=== PATIENT | male | born 1995 | race Caucasian/White ===

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

== ENCOUNTER 2017-11-20 08:34 | Emergency (ER) | payer BC, OTHER ==
[2017-11-20 08:51] VITALS: BP 106/71; PULSE 79; RESP 16; TEMP 98
--- NOTE | 2017-11-20 09:16 | ED ---
Lower Extremity Injury HPI - General Chief Complaint: Extremity Injury, Lower Stated Complaint: Ankle injury Time Seen by Provider: 11/20/17 09:04 Source: patient, RN notes reviewed Mode of arrival: wheelchair Limitations: no limitations - History of Present Illness Initial Comments: This a 22-year-old male presents emergency Department chief complaint of left ankle and foot injury. Patient states his messing around his friends landed on his left ankle awkwardly and felt a pop. Patient states her swelling noted. He 's had no prior fracture or sprains. Patient states that it's he has been applying ice no recent Tylenol Motrin. Patient offers no other complaints. - Related Data Previous Rx's Medication Instructions Recorded Ibuprofen [Motrin] 600 mg PO Q8HR PRN #30 tab 11/20/17 Allergies Allergy/AdvReac Type Severity Reaction Status Date / Time sulfamethoxazole Allergy Rash/Hives Verified 11/20/17 09:02 [From Marra] trimethoprim [From Marra] Allergy Rash/Hives Verified 11/20/17 09:02 Review of Systems ROS Statement: Those systems with pertinent positive or pertinent negative responses have been documented in the HPI. ROS Other: All systems not noted in ROS Statement are negative. Past Medical History Additional Past Medical History / Comment(s): kidney stones History of Any Multi-Drug Resistant Organisms: None Reported Past Surgical History: No Surgical Hx Reported Past Psychological History: No Psychological Hx Reported Smoking Status: Never smoker Past Alcohol Use History: None Reported Past Drug Use History: None Reported General Exam Limitations: no limitations General appearance: alert, in no apparent distress Head exam: Present: atraumatic, normocephalic, normal inspection Respiratory exam: Present: normal lung sounds bilaterally. Absent: respiratory distress, wheezes, rales, rhonchi, stridor Cardiovascular Exam: Present: regular rate, normal rhythm, normal heart sounds. Absent: systolic murmur, diastolic murmur, rubs, gallop, clicks Extremities exam: Present: other (There is mild swelling noted to the left lateral malleolus region, left lateral foot with moderate tenderness neurovascular intact.) Skin exam: Present: warm, dry, intact, normal color. Absent: rash Course Vital Signs 11/20/17 08:49 Temperature 98 F Pulse Rate 79 Respiratory 16 Rate Blood Pressure 106/71 O2 Sat by Pulse 99 Oximetry Medical Decision Making - Medical Decision Making 22-year-old male presents emergency Department chief complaint of left ankle foot injury. X-rays reviewed there is no acute fracture. Patient has a left ankle sprain. Patient will be Gilles wrapped. He is advised to continue to elevate rest ice and take ibuprofen as directed. Return parameters were discussed. Disposition Clinical Impression: Left ankle sprain Disposition: HOME SELF-CARE Condition: Stable Instructions: Ankle Sprain (ED) Additional Instructions: Please return to the Emergency Department if symptoms worsen or any other concerns. Prescriptions: Ibuprofen [Motrin] 600 mg PO Q8HR PRN #30 tab PRN Reason: Pain Is patient prescribed a controlled substance at d/c from ED?: No Referrals: Koby Roberson MD [Primary Care Provider] - 1-2 days Enrico Contreras DO [Doctor of Osteopathic Medicine] - 1-2 days Time of Disposition: 09:45
--- NOTE | 2017-11-20 09:42 | XR ---
EXAMINATION TYPE: XR ankle complete LT, XR foot complete LT DATE OF EXAM: 11/20/2017 CLINICAL HISTORY: Injury yesterday with swelling and bruising and pain. TECHNIQUE: Frontal, lateral and oblique images of the left ankle and foot are obtained. COMPARISON: None. FINDINGS: There is no acute fracture/dislocation evident in the left ankle. The ankle mortise appea rs within normal limits. The overlying soft tissue appears unremarkable. There is no acute fracture or dislocation evident in the left foot. The joint spaces in the left marcella t are preserved. Overlying soft tissue is unremarkable. IMPRESSION: There is no acute fracture or dislocation in the left ankle or foot.
== END 2017-11-20 10:15 | disposition home or self-care (01) ==
LOC: EC 08:34
DX: S93.402A Sprain of unspecified ligament of left ankle, initial encounter (principal); Z88.2 Allergy status to sulfonamides; X50.1XXA Overexertion from prolonged static or awkward postures, initial encounter
CPT/HCPCS: 99283

== ENCOUNTER 2018-03-08 11:29 | Emergency (ER) | payer BC ==
[2018-03-08 12:00] VITALS: RESP 18
[2018-03-08] MEDS ORDERED: SODIUM CHLORIDE 0.9% 1,000 ML IV STA (12:12)
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
[2018-03-08 13:08] LABS: Appearance,Urine Clear (Clear); Bilirubin,Urine Negative (Negative); Blood,Urine Large (Negative); Color,Urine Light Red; Glucose,Urine (UA) Negative (Negative); Ketones,Urine 1+ (Negative); Leukocyte Esterase,Urine Trace (Negative); Mucus,Urine Many /hpf; Nitrite,Urine Negative (Negative); PH, Urine 7.5 (5.0-8.0); Protein,Urine 1+ (Negative); RBC,Urine >182 /hpf (0-5); Squamous Epithelial Cell,Urine 2 /hpf (0-4); Urobilinogen,Urine <2.0 mg/dL (<2.0); WBC,Urine 50 /hpf (0-5)
[2018-03-08 13:10] LABS: Basophils # (A) 0.1 k/uL (0-0.2); Basophils % (A) 1 %; Eosinophils # (A) 0.1 k/uL (0-0.7); Eosinophils % (A) 2 %; HCT 49.6 % (39.0-53.0); Lymphocytes # (A) 1.7 k/uL (1.0-4.8); Lymphocytes % (A) 22 %; MCH 30.7 pg (25.0-35.0); MCHC 34.3 g/dL (31.0-37.0); MCV 89.7 fL (80.0-100.0); Mean Platelet Volume 8.6; Monocytes # (A) 0.8 k/uL (0-1.0); Monocytes % (A) 11 %; Neutrophils # (A) 4.9 k/uL (1.3-7.7); Neutrophils % (A) 63 %; Platelet Count 244 k/uL (150-450); RBC 5.53 m/uL (4.30-5.90); RDW 12.5 % (11.5-15.5); WBC 7.8 k/uL (3.8-10.6)
[2018-03-08 13:19] LABS: ALT 25 U/L (21-72); AST 44 U/L (17-59); Albumin 4.3 g/dL (3.5-5.0); Alkaline Phosphatase 91 U/L (38-126); Anion Gap 11 mmol/L; Blood Urea Nitrogen 14 mg/dL (9-20); Calcium 9.3 mg/dL (8.4-10.2); Carbon Dioxide 25 mmol/L (22-30); Chloride 104 mmol/L (98-107); Glucose 85 mg/dL (74-99); Sodium 140 mmol/L (137-145); Total Bilirubin 2.9 mg/dL (0.2-1.3); Total Protein 8.1 g/dL (6.3-8.2)
[2018-03-08 13:26] LABS: Potassium 5.1 mmol/L (3.5-5.1)
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
[2018-03-08 15:04] VITALS: BP 126/62; PULSE 62; TEMP 97.9
== END 2018-03-08 15:16 | disposition home or self-care (01) ==
LOC: EC 11:29
DX: R31.9 Hematuria, unspecified (principal); R52 Pain, unspecified; Z88.2 Allergy status to sulfonamides; V49.49XA Driver injured in collision with other motor vehicles in traffic accident, initial encounter; Y92.219 Unspecified school as the place of occurrence of the external cause
CPT/HCPCS: 36415; 80053; 85025; 81001; 87086; 74177; 99284; 96360; Q9967

== ENCOUNTER → 2019-02-17 | Outpatient (CLI) | payer BC ==
--- NOTE | 2019-02-18 09:37 | XR ---
KUB HISTORY: Left-sided abdominal pain Frontal KUB and [address] dated 02/18/2019 The patient's right-sided kidney stones and left-sided kidney stones are obscured by overlying bowel gas. Patient's proximal left ureteral calculus is not seen with certainty but may be present in the l eft paraspinal location at the level of the disc space L2-3e measuring approximately 2 to 3 mm Lung b ases are clear. No pneumoperitoneum or bowel obstruction. Bone mineralization is normal. Small calcif ication in the right hemipelvis may represent phlebolith rather than distal ureteral calculus. There is retained fecal debris throughout the distribution of the colon. IMPRESSION: Bilateral nephrolithiasis seen on CT is not as well seen on plain film but is thought to be present in the left paraspinal location. Correlate for fecal stasis.
== END | disposition home or self-care (01) ==
LOC: RADXRMAIN 16:34
PROVIDERS: ATTEND Family Medicine
DX: R10.9 Unspecified abdominal pain (principal); R31.9 Hematuria, unspecified; Z87.442 Personal history of urinary calculi
CPT/HCPCS: 74018

== ENCOUNTER 2019-02-18 01:58 | Emergency (ER) | payer BC ==
[2019-02-18 02:11] VITALS: RESP 18
[2019-02-18] MEDS ORDERED: KETOROLAC 30 MG/ML 1 ML VIAL IVP STA (02:55)
[2019-02-18] MEDS ORDERED: ONDANSETRON 4 MG/2 ML VIAL IVP STA (02:55)
[2019-02-18] MEDS ORDERED: SODIUM CHLORIDE 0.9% 1,000 ML IV STA (02:55)
--- NOTE | 2019-02-18 03:39 | ED ---
Abdominal Pain HPI - General Chief Complaint: Abdominal Pain Stated Complaint: Abd pain Time Seen by Provider: 02/18/19 02:55 Source: patient, RN notes reviewed, old records reviewed Mode of arrival: ambulatory Limitations: no limitations - History of Present Illness Initial Comments: This is a 22-year-old male the ER for evaluation. Patient is today for evaluation of flank pain abdominal pain severe. Patient has history of kidney stones believes is recurrent kidney stone. No blood in the urine no dysuria. No fevers. Mild nausea no active vomiting. Patient denies any other complaints. Patient slight pain is left-sided radiating to groin MD Complaint: flank pain (Left-sided) -: days(s) Location: LLQ, suprapubic, L flank Radiation: L flank Migration to: suprapubic Severity: moderate Severity scale (1-10): 7 Quality: stabbing Consistency: constant Improves With: nothing Worsens With: nothing Associated Symptoms: nausea - Related Data Previous Rx's Medication Instructions Recorded Ibuprofen [Motrin] 600 mg PO Q8HR PRN #30 tab 11/20/17 Naproxen [Naprosyn] 500 mg PO Q12HR PRN #30 tab 02/18/19 Ondansetron Odt [Zofran ODT] 4 mg PO Q8HR PRN #30 tab 02/18/19 Allergies Allergy/AdvReac Type Severity Reaction Status Date / Time sulfamethoxazole Allergy Rash/Hives Verified 02/18/19 02:11 [From ] trimethoprim [From ] Allergy Rash/Hives Verified 02/18/19 02:11 Review of Systems ROS Statement: Those systems with pertinent positive or pertinent negative responses have been documented in the HPI. ROS Other: All systems not noted in ROS Statement are negative. Past Medical History Additional Past Medical History / Comment(s): kidney stones History of Any Multi-Drug Resistant Organisms: None Reported Past Surgical History: No Surgical Hx Reported Past Psychological History: No Psychological Hx Reported Smoking Status: Never smoker Past Alcohol Use History: Occasional Past Drug Use History: None Reported General Exam Limitations: no limitations General appearance: alert, in no apparent distress Head exam: Present: atraumatic, normocephalic, normal inspection Eye exam: Present: normal appearance, PERRL, EOMI. Absent: scleral icterus, conjunctival injection, periorbital swelling ENT exam: Present: normal exam, mucous membranes moist Neck exam: Present: normal inspection. Absent: tenderness, meningismus, lymphadenopathy Respiratory exam: Present: normal lung sounds bilaterally. Absent: respiratory distress, wheezes, rales, rhonchi, stridor Cardiovascular Exam: Present: regular rate, normal rhythm, normal heart sounds. Absent: systolic murmur, diastolic murmur, rubs, gallop, clicks GI/Abdominal exam: Present: soft, normal bowel sounds. Absent: distended, tenderness, guarding, rebound, rigid Extremities exam: Present: normal inspection, full ROM, normal capillary refill. Absent: tenderness, pedal edema, joint swelling, calf tenderness Back exam: Present: normal inspection Neurological exam: Present: alert, oriented X3, CN II-XII intact Psychiatric exam: Present: normal affect, normal mood Skin exam: Present: warm, dry, intact, normal color. Absent: rash Course Vital Signs 02/18/19 02/18/19 02/18/19 02:08 03:25 04:35 Temperature 98.1 F 98 F Pulse Rate 69 64 Respiratory 18 18 Rate Blood Pressure 109/74 134/77 125/64 O2 Sat by Pulse 98 99 Oximetry Medical Decision Making - Medical Decision Making 24 male the ER for evaluation history of kidney stones coming of kidney stones. Patient has adequate pain control currently and can be discharged home - Lab Data Result diagrams: 02/18/19 03:34 02/18/19 03:34 Lab Results 02/18/19 02/18/19 02/18/19 Range/Units 03:34 03:34 03:34 WBC 11.0 H (3.8-10.6) k/uL RBC 5.29 (4.30-5.90) m/uL Hgb 16.2 (13.0-17.5) gm/dL Hct 48.1 (39.0-53.0) % MCV 90.8 (80.0-100.0) fL MCH 30.6 (25.0-35.0) pg MCHC 33.6 (31.0-37.0) g/dL RDW 12.6 (11.5-15.5) % Plt Count 256 (150-450) k/uL Neutrophils % 74 % Lymphocytes % 15 % Monocytes % 7 % Eosinophils % 1 % Basophils % 1 % Neutrophils # 8.1 H (1.3-7.7) k/uL Lymphocytes # 1.7 (1.0-4.8) k/uL Monocytes # 0.8 (0-1.0) k/uL Eosinophils # 0.2 (0-0.7) k/uL Basophils # 0.1 (0-0.2) k/uL Sodium 138 (137-145) mmol/L Potassium 5.4 H (3.5-5.1) mmol/L Chloride 105 (98-107) mmol/L Carbon Dioxide 23 (22-30) mmol/L Anion Gap 10 mmol/L BUN 10 (9-20) mg/dL Creatinine 0.92 (0.66-1.25) mg/dL Est GFR (CKD-EPI)AfAm >90 (>60 ml/min/1.73 sqM) Est GFR (CKD-EPI)NonAf >90 (>60 ml/min/1.73 sqM) Glucose 98 (74-99) mg/dL Calcium 9.0 (8.4-10.2) mg/dL Total Bilirubin 2.0 H (0.2-1.3) mg/dL AST 57 (17-59) U/L ALT 11 L (21-72) U/L Alkaline Phosphatase 96 (38-126) U/L Creatine Kinase 160 (55-170) U/L Total Protein 7.9 (6.3-8.2) g/dL Albumin 4.4 (3.5-5.0) g/dL Amylase 64 (30-110) U/L Lipase 66 (23-300) U/L Urine Color Light Red Urine Appearance Cloudy (Clear) Urine pH 6.0 (5.0-8.0) Ur Specific [place] 1.020 (1.001-1.035) Urine Protein 1+ H (Negative) Urine Glucose (UA) Negative (Negative) Urine Ketones Negative (Negative) Urine Blood Large H (Negative) Urine Nitrite Negative (Negative) Urine Bilirubin Negative (Negative) Urine Urobilinogen 2.0 (<2.0) mg/dL Ur Leukocyte Esterase Small H (Negative) Urine RBC >182 H (0-5) /hpf Urine WBC 8 H (0-5) /hpf Ur Squamous Epith Cells 4 (0-4) /hpf Calcium Oxalate Crystal Occasional H (None) /hpf Urine Bacteria Rare H (None) /hpf Hyaline Casts 6 H (0-2) /lpf Urine Mucus Moderate H (None) /hpf - Radiology Data Radiology results: report reviewed (CT head and pelvis positive for kidney stone), image reviewed Disposition Clinical Impression: Kidney stone, Left ureteral calculus Disposition: HOME SELF-CARE Condition: Good Instructions (If sedation given, give patient instructions): Kidney Stones (ED) Prescriptions: Naproxen [Naprosyn] 500 mg PO Q12HR PRN #30 tab PRN Reason: Pain Ondansetron Odt [Zofran ODT] 4 mg PO Q8HR PRN #30 tab PRN Reason: nausea/vomiting Is patient prescribed a controlled substance at d/c from ED?: No Referrals: Koby Roberson MD [Primary Care Provider] - 1-2 days
[2019-02-18 03:47] LABS: Basophils # (A) 0.1 k/uL (0-0.2); Basophils % (A) 1 %; Eosinophils # (A) 0.2 k/uL (0-0.7); Eosinophils % (A) 1 %; HCT 48.1 % (39.0-53.0); HGB 16.2 gm/dL (13.0-17.5); Lymphocytes # (A) 1.7 k/uL (1.0-4.8); Lymphocytes % (A) 15 %; MCH 30.6 pg (25.0-35.0); MCHC 33.6 g/dL (31.0-37.0); MCV 90.8 fL (80.0-100.0); Mean Platelet Volume 7.9; Monocytes # (A) 0.8 k/uL (0-1.0); Monocytes % (A) 7 %; Neutrophils # (A) 8.1 k/uL (1.3-7.7); Neutrophils % (A) 74 %; Platelet Count 256 k/uL (150-450); RBC 5.29 m/uL (4.30-5.90); RDW 12.6 % (11.5-15.5)
--- NOTE | 2019-02-18 04:02 | CT ---
INDICATION: Abdominal pain TECHNIQUE: CT acquisition is performed through the abdomen and pelvis. Sagittal and coronal reformatted images are provided. No IV contrast is administered. DOSE INFORMATION: DLP 1225.1 mGy-cm. This CT exam was performed using one or more of the following dose reduction techniques: automated exposure control, adjustment of the mA and/or kV according to patient size, and/or use of iterative reconstruction technique. COMPARISON: CT abdomen and pelvis 03/08/18 FINDINGS: The lung bases are clear. The unenhanced appearance of the liver, gallbladder, spleen, pancreas, and adrenal glands is unremarkable. There are approximately 6 nonobstructing right kidney stones, measuring up to 5 mm in the upper pole. There is no hydronephrosis. There is an obstructing 3 mm proximal left ureter stone at the L3 level causing mild upstream hydroureteronephrosis. There are approximately 4 additional nonobstructing stones in left kidney, the largest measuring 5 mm in the lower pole. Aorta and IVC are normal. There is no adenopathy. The appendix is normal. There are no obstructive or inflammatory changes of the bowel. Urinary bladder and prostate are unremarkable. There are no acute osseous findings. IMPRESSION: 1. Obstructing 3 mm proximal left ureter stone causing mild upstream hydroureteronephrosis. 2. Additional bilateral nonobstructing kidney stones.
[2019-02-18 04:04] LABS: ALT 11 U/L (21-72); AST 57 U/L (17-59); African American GFR (CKD) >90 (>60 ml/min/1.73 sqM); Albumin 4.4 g/dL (3.5-5.0); Alkaline Phosphatase 96 U/L (38-126); Amylase 64 U/L (30-110); Anion Gap 10 mmol/L; Blood Urea Nitrogen 10 mg/dL (9-20); Carbon Dioxide 23 mmol/L (22-30); Chloride 105 mmol/L (98-107); Creatine Kinase 160 U/L (55-170); Glucose 98 mg/dL (74-99); Potassium 5.4 mmol/L (3.5-5.1); Sodium 138 mmol/L (137-145); Total Protein 7.9 g/dL (6.3-8.2)
[2019-02-18 04:12] LABS: Appearance,Urine Cloudy (Clear); Bacteria,Urine Rare /hpf; Bilirubin,Urine Negative (Negative); Blood,Urine Large (Negative); Calcium Oxalate Crystals,Urine Occasional /hpf; Color,Urine Light Red; Glucose,Urine (UA) Negative (Negative); Hyaline Casts,Urine 6 /lpf (0-2); Ketones,Urine Negative (Negative); Leukocyte Esterase,Urine Small (Negative); Mucus,Urine Moderate /hpf; Nitrite,Urine Negative (Negative); Protein,Urine 1+ (Negative); RBC,Urine >182 /hpf (0-5); Squamous Epithelial Cell,Urine 4 /hpf (0-4); WBC,Urine 8 /hpf (0-5)
[2019-02-18] MEDS ORDERED: MORPHINE SULFATE 4 MG/ML SYRINGE IVP STA (04:16)
[2019-02-18] MEDS ORDERED: ACET/COD 300 MG/30 MG STARTER PACK 6 TAB BTL PO STA (04:16)
[2019-02-18 04:36] VITALS: BP 125/64; PULSE 64; TEMP 98
== END 2019-02-18 04:50 | disposition home or self-care (01) ==
LOC: EC 01:58
DX: N13.2 Hydronephrosis with renal and ureteral calculous obstruction (principal); Z88.1 Allergy status to other antibiotic agents; Z88.2 Allergy status to sulfonamides
CPT/HCPCS: 36415; 80053; 82150; 82550; 83690; 85025; 81001; 87086; 74176; 99284; 96374; 96375; 96361; J2405; J1885

== ENCOUNTER → 2020-04-27 | Outpatient (CLI) | payer BC ==
[2020-04-27 16:23] LABS: Basophils # (A) 0.1 k/uL (0-0.2); Basophils % (A) 1 %; Eosinophils # (A) 0.1 k/uL (0-0.7); Eosinophils % (A) 1 %; HCT 49.5 % (39.0-53.0); HGB 16.7 gm/dL (13.0-17.5); Lymphocytes # (A) 1.7 k/uL (1.0-4.8); Lymphocytes % (A) 17 %; MCH 30.9 pg (25.0-35.0); MCHC 33.8 g/dL (31.0-37.0); MCV 91.5 fL (80.0-100.0); Mean Platelet Volume 8.3; Monocytes # (A) 0.7 k/uL (0-1.0); Monocytes % (A) 7 %; Neutrophils # (A) 7.6 k/uL (1.3-7.7); Neutrophils % (A) 73 %; Platelet Count 312 k/uL (150-450); RBC 5.42 m/uL (4.30-5.90); RDW 12.7 % (11.5-15.5); WBC 10.4 k/uL (3.8-10.6)
[2020-04-27 16:32] LABS: ALT 23 U/L (4-49); AST 38 U/L (17-59); African American GFR (CKD) >90 (>60 ml/min/1.73 sqM); Albumin 4.7 g/dL (3.5-5.0); Albumin/Globulin Ratio 1.3; Alkaline Phosphatase 95 U/L (38-126); Anion Gap 7 mmol/L; Blood Urea Nitrogen 14 mg/dL (9-20); Calcium 9.8 mg/dL (8.4-10.2); Carbon Dioxide 29 mmol/L (22-30); Chloride 103 mmol/L (98-107); Globulin 3.6 g/dL; Glucose 98 mg/dL (74-99); Non-African American GFR(CKD) >90 (>60 ml/min/1.73 sqM); Potassium 4.3 mmol/L (3.5-5.1); Sodium 139 mmol/L (137-145); Total Bilirubin 3.3 mg/dL (0.2-1.3); Total Protein 8.3 g/dL (6.3-8.2)
[2020-04-27 16:50] LABS: Appearance,Urine Clear (Clear); Bilirubin,Urine Negative (Negative); Blood,Urine Small (Negative); Color,Urine Yellow; Glucose,Urine (UA) Negative (Negative); Ketones,Urine Negative (Negative); Leukocyte Esterase,Urine Small (Negative); Mucus,Urine Rare /hpf; Nitrite,Urine Negative (Negative); PH, Urine 6.5 (5.0-8.0); Protein,Urine Negative (Negative); RBC,Urine 8 /hpf (0-5); Urobilinogen,Urine <2.0 mg/dL (<2.0); WBC,Urine 3 /hpf (0-5)
== END | disposition home or self-care (01) ==
LOC: LABWHC1 16:04
PROVIDERS: ATTEND Family Medicine
DX: R53.82 Chronic fatigue, unspecified (principal); R35.0 Frequency of micturition
CPT/HCPCS: 36415; 80053; 81001; 83735; 84443; 85025

== ENCOUNTER 2020-06-12 21:07 | Emergency (ER) | payer BC ==
--- NOTE | 2020-06-12 21:27 | ED ---
General Adult HPI - General Chief complaint: Fever Stated complaint: Fever Time Seen by Provider: 06/12/20 21:24 Source: patient Mode of arrival: ambulatory Limitations: no limitations - History of Present Illness Initial comments: Patient presents the ED complaining of having a fever, cough, congestion and "sinus pressure" for the past 5 days or so. Patient states that he has been taking Tylenol for his fever, and he states that he last took a dose over 9 hours ago today. Patient also admits to feeling somewhat nauseated. Patient denies known sick contact or known Covid-19 exposure. Patient denies headache, focal neuro deficit, sore throat, neck pain or stiffness, chest pain, dyspnea, hemoptysis, palpitations, dizziness, abdominal pain, vomiting or diarrhea, dysuria or urinary symptoms, rash, leg or calf swelling or pain, or any other symptoms or complaints. - Related Data Previous Rx's Medication Instructions Recorded Ibuprofen [Motrin] 600 mg PO Q8HR PRN #30 tab 11/20/17 Naproxen [Naprosyn] 500 mg PO Q12HR PRN #30 tab 02/18/19 Ondansetron Odt [Zofran ODT] 4 mg PO Q8HR PRN #30 tab 02/18/19 Allergies Allergy/AdvReac Type Severity Reaction Status Date / Time sulfamethoxazole Allergy Rash/Hives Verified 06/12/20 21:22 [From ] trimethoprim [From [place]] Allergy Rash/Hives Verified 06/12/20 21:22 Review of Systems ROS Statement: Those systems with pertinent positive or pertinent negative responses have been documented in the HPI. ROS Other: All systems not noted in ROS Statement are negative. Past Medical History Additional Past Medical History / Comment(s): kidney stones History of Any Multi-Drug Resistant Organisms: None Reported Past Surgical History: No Surgical Hx Reported Additional Past Surgical History / Comment(s): kidney Past Psychological History: No Psychological Hx Reported Smoking Status: Never smoker Past Alcohol Use History: Occasional Past Drug Use History: Marijuana General Exam Limitations: no limitations General appearance: alert, in no apparent distress Head exam: Present: atraumatic, normocephalic Eye exam: Present: normal appearance, EOMI ENT exam: Present: normal oropharynx, mucous membranes moist Neck exam: Present: other (Trachea is in midline; no nuchal rigidity or meningeal signs are present on examination). Absent: tenderness, meningismus Respiratory exam: Present: normal lung sounds bilaterally. Absent: respiratory distress, wheezes, rales, rhonchi, stridor Cardiovascular Exam: Present: normal rhythm, tachycardia, normal heart sounds, other (Normal radial pulses bilaterally) GI/Abdominal exam: Present: soft. Absent: distended, tenderness, guarding Extremities exam: Absent: tenderness, pedal edema, calf tenderness Neurological exam: Present: alert, oriented X3. Absent: motor sensory deficit Psychiatric exam: Present: normal affect, normal mood Skin exam: Present: warm, dry, intact, normal color Course Vital Signs 06/12/20 06/12/20 21:18 22:54 Temperature 103.1 F H 99.9 F H Pulse Rate 119 H 102 H Respiratory 24 16 Rate Blood Pressure 87/47 111/58 O2 Sat by Pulse 99 100 Oximetry - Reevaluation(s) Reevaluation #1: 06/12/20 22:59 Patient's fever, heart rate and blood pressure have all now improved. Patient continues to be breathing comfortably with clear breath sounds bilaterally and a normal room air oxygen saturation. Patient denies development of any new symptoms while in the ED, and he continues to deny having any chest pain or dyspnea. Patient's chest x-ray is unremarkable. Patient's influenza and mono tests are negative. I suspect that the patient may have Covid-19. Patient's Covid19 test is currently still pending. Patient is aware of his test results, and he feels comfortable going home at this time. Patient was counseled about fever control, upper respiratory infections and Covid19 infections. Patient was clearly explained return and follow-up instructions. Patient was instructed to have a low threshold for return to the ED, particularly if he develops shortness of breath or chest pain. Patient was counseled about isolation precautions and preventing spread. He feels comfortable with this plan. Medical Decision Making - Lab Data Result diagrams: 06/12/20 21:35 06/12/20 21:35 Lab Results 06/12/20 06/12/20 06/12/20 Range/Units 21:35 21:35 21:35 WBC 8.1 (3.8-10.6) k/uL RBC 4.94 (4.30-5.90) m/uL Hgb 16.0 (13.0-17.5) gm/dL Hct 44.8 (39.0-53.0) % MCV 90.6 (80.0-100.0) fL MCH 32.3 (25.0-35.0) pg MCHC 35.6 (31.0-37.0) g/dL RDW 12.3 (11.5-15.5) % Plt Count 159 (150-450) k/uL MPV 8.8 Neutrophils % (Manual) 32 % Lymphocytes % (Manual) 36 % Monocytes % (Manual) 32 % Neutrophils # (Manual) 2.59 (1.3-7.7) k/uL Lymphocytes # (Manual) 2.92 (1.0-4.8) k/uL Monocytes # (Manual) 2.59 H (0-1.0) k/uL Nucleated RBCs 0 (0-0) /100 WBC Manual Slide Review Performed Reactive Lymphocytes Present Sodium 134 L (137-145) mmol/L Potassium 4.4 (3.5-5.1) mmol/L Chloride 102 (98-107) mmol/L Carbon Dioxide 24 (22-30) mmol/L Anion Gap 8 mmol/L BUN 13 (9-20) mg/dL Creatinine 1.07 (0.66-1.25) mg/dL Est GFR (CKD-EPI)AfAm >90 (>60 ml/min/1.73 sqM) Est GFR (CKD-EPI)NonAf >90 (>60 ml/min/1.73 sqM) Glucose 102 H (74-99) mg/dL Calcium 9.0 (8.4-10.2) mg/dL Total Bilirubin 2.6 H (0.2-1.3) mg/dL AST 267 H (17-59) U/L ALT 292 H (4-49) U/L Alkaline Phosphatase 143 H (38-126) U/L Total Protein 7.6 (6.3-8.2) g/dL Albumin 3.9 (3.5-5.0) g/dL Heterophile Antibody (Negative) Influenza Type A RNA Not Detected (Not Detectd) Influenza Type B (PCR) Not Detected (Not Detectd) 06/12/20 Range/Units 21:35 WBC (3.8-10.6) k/uL RBC (4.30-5.90) m/uL Hgb (13.0-17.5) gm/dL Hct (39.0-53.0) % MCV (80.0-100.0) fL MCH (25.0-35.0) pg MCHC (31.0-37.0) g/dL RDW (11.5-15.5) % Plt Count (150-450) k/uL MPV Neutrophils % (Manual) % Lymphocytes % (Manual) % Monocytes % (Manual) % Neutrophils # (Manual) (1.3-7.7) k/uL Lymphocytes # (Manual) (1.0-4.8) k/uL Monocytes # (Manual) (0-1.0) k/uL Nucleated RBCs (0-0) /100 WBC Manual Slide Review Reactive Lymphocytes Sodium (137-145) mmol/L Potassium (3.5-5.1) mmol/L Chloride (98-107) mmol/L Carbon Dioxide (22-30) mmol/L Anion Gap mmol/L BUN (9-20) mg/dL Creatinine (0.66-1.25) mg/dL Est GFR (CKD-EPI)AfAm (>60 ml/min/1.73 sqM) Est GFR (CKD-EPI)NonAf (>60 ml/min/1.73 sqM) Glucose (74-99) mg/dL Calcium (8.4-10.2) mg/dL Total Bilirubin (0.2-1.3) mg/dL AST (17-59) U/L ALT (4-49) U/L Alkaline Phosphatase (38-126) U/L Total Protein (6.3-8.2) g/dL Albumin (3.5-5.0) g/dL Heterophile Antibody Negative (Negative) Influenza Type A RNA (Not Detectd) Influenza Type B (PCR) (Not Detectd) - Radiology Data Radiology results: image reviewed (Chest x-ray is negative) Disposition Clinical Impression: Upper respiratory infection, Acute febrile illness Disposition: HOME SELF-CARE Condition: Stable Instructions (If sedation given, give patient instructions): Fever in Adults (ED), Upper Respiratory Infection (ED) Additional Instructions: Return to the ER immediately should you develop shortness of breath/trouble breathing, chest pain, persistent vomiting, feeling dizzy or faint, or new or worsening symptoms. Follow up closely with your primary care provider. Is patient prescribed a controlled substance at d/c from ED?: No Referrals: Koby Roberson MD [Primary Care Provider] - 1-2 days Time of Disposition: 23:03
[2020-06-12] MEDS ORDERED: ACETAMINOPHEN TAB 500 MG TAB PO STA (21:34)
[2020-06-12] MEDS ORDERED: SODIUM CHLORIDE 0.9% 1,000 ML IV ONE (21:34)
[2020-06-12] MEDS ORDERED: IBUPROFEN 600 MG TAB PO STA (21:34)
[2020-06-12 21:55] LABS: HCT 44.8 % (39.0-53.0); MCH 32.3 pg (25.0-35.0); MCHC 35.6 g/dL (31.0-37.0); MCV 90.6 fL (80.0-100.0); Mean Platelet Volume 8.8; Platelet Count 159 k/uL (150-450); RBC 4.94 m/uL (4.30-5.90); RDW 12.3 % (11.5-15.5); WBC 8.1 k/uL (3.8-10.6)
[2020-06-12 22:05] LABS: ALT 292 U/L (4-49); AST 267 U/L (17-59); African American GFR (CKD) >90 (>60 ml/min/1.73 sqM); Albumin 3.9 g/dL (3.5-5.0); Alkaline Phosphatase 143 U/L (38-126); Anion Gap 8 mmol/L; Blood Urea Nitrogen 13 mg/dL (9-20); Carbon Dioxide 24 mmol/L (22-30); Chloride 102 mmol/L (98-107); Glucose 102 mg/dL (74-99); Non-African American GFR(CKD) >90 (>60 ml/min/1.73 sqM); Potassium 4.4 mmol/L (3.5-5.1); Sodium 134 mmol/L (137-145); Total Bilirubin 2.6 mg/dL (0.2-1.3); Total Protein 7.6 g/dL (6.3-8.2)
--- NOTE | 2020-06-12 22:06 | XR ---
EXAMINATION TYPE: XR chest 1V portable DATE OF EXAM: 06/12/2020 COMPARISON: NONE HISTORY: Fever and cough. TECHNIQUE: Single frontal view of the chest is obtained. FINDINGS: There is no focal air space opacity, pleural effusion, or pneumothorax seen. The cardiac silhouette size is within normal limits. The osseous structures are intact. IMPRESSION: No acute process.
[2020-06-12 22:46] LABS: Lymphocytes # (M) 2.92 k/uL (1.0-4.8); Monocytes # (M) 2.59 k/uL (0-1.0); Neutrophils # (M) 2.59 k/uL (1.3-7.7); Neutrophils % (M) 32 %; Nucleated Red Blood Cells 0 /100 WBC (0-0); Reactive Lymphocytes Present; Total Cells Counted 100
[2020-06-12 22:55] VITALS: BP 111/58; PULSE 102; RESP 16; TEMP 99.9
== END 2020-06-12 22:59 | disposition home or self-care (01) ==
LOC: EC 21:07
DX: J06.9 Acute upper respiratory infection, unspecified (principal); Z20.828 Contact with and (suspected) exposure to other viral communicable diseases; Z88.2 Allergy status to sulfonamides; Z88.1 Allergy status to other antibiotic agents
CPT/HCPCS: 36415; 80053; 85025; 86308; 87502; 71045; 99283; 96360; U0003

== ENCOUNTER 2021-09-11 09:40 | Emergency (ER) | payer BC ==
[2021-09-11] MEDS ORDERED: KETOROLAC 15 MG/ML 1 ML VIAL IVP STA (09:54)
[2021-09-11] MEDS ORDERED: SODIUM CHLORIDE 0.9% 2,000 ML IV ONE (09:54)
[2021-09-11] MEDS ORDERED: ONDANSETRON 4 MG/2 ML VIAL IVP STA (09:54)
[2021-09-11] MEDS ORDERED: HYDROmorphone 0.5 MG/0.5 ML SYRINGE IVP STA (09:54)
--- NOTE | 2021-09-11 10:08 | ED ---
Abdominal Pain HPI - General Chief Complaint: Abdominal Pain Stated Complaint: Kidney stone Time Seen by Provider: 09/11/21 09:45 Source: patient, RN notes reviewed Mode of arrival: ambulatory Limitations: no limitations - History of Present Illness Initial Comments: 26-year-old male presents emergency Department with chief complaint of right flank pain. Patient states awoke him up this one. Patient has a history kidney stones. Patient now has noticeable hematuria. Patient denies any fevers chills he does admit to nausea, nothing take makes the pain feel better or worse. Patient denies any chest pain shortness breath headache dizziness patient's had multiple kidney stones in the past - Related Data Previous Rx's Medication Instructions Recorded Ibuprofen [Motrin] 600 mg PO Q8HR PRN #30 tab 11/20/17 Naproxen [Naprosyn] 500 mg PO Q12HR PRN #30 tab 02/18/19 Ondansetron Odt [Zofran ODT] 4 mg PO Q8HR PRN #30 tab 02/18/19 Ketorolac [Toradol] 10 mg PO Q8HR #15 tab 09/11/21 Ondansetron Odt [Zofran Odt] 4 mg PO Q8HR PRN #10 tab 09/11/21 Allergies Allergy/AdvReac Type Severity Reaction Status Date / Time sulfamethoxazole Allergy Rash/Hives Verified 09/11/21 09:43 [From Septra] trimethoprim [From Septra] Allergy Rash/Hives Verified 09/11/21 09:43 Review of Systems ROS Statement: Those systems with pertinent positive or pertinent negative responses have been documented in the HPI. ROS Other: All systems not noted in ROS Statement are negative. Past Medical History Additional Past Medical History / Comment(s): kidney stones History of Any Multi-Drug Resistant Organisms: None Reported Past Surgical History: No Surgical Hx Reported Additional Past Surgical History / Comment(s): kidney Past Psychological History: No Psychological Hx Reported Smoking Status: Never smoker Past Alcohol Use History: Occasional Past Drug Use History: Marijuana General Exam Limitations: no limitations General appearance: alert, in no apparent distress Head exam: Present: atraumatic, normocephalic, normal inspection Eye exam: Present: normal appearance, PERRL, EOMI. Absent: scleral icterus, conjunctival injection, periorbital swelling ENT exam: Present: normal exam, normal oropharynx, mucous membranes moist Neck exam: Present: normal inspection, full ROM. Absent: tenderness, meningismus, lymphadenopathy Respiratory exam: Present: normal lung sounds bilaterally. Absent: respiratory distress, wheezes, rales, rhonchi, stridor Cardiovascular Exam: Present: regular rate, normal rhythm, normal heart sounds. Absent: systolic murmur, diastolic murmur, rubs, gallop, clicks GI/Abdominal exam: Present: soft, normal bowel sounds. Absent: distended, tenderness, guarding, rebound, rigid Back exam: Present: CVA tenderness (R). Absent: CVA tenderness (L) Neurological exam: Present: alert, oriented X3 Skin exam: Present: warm, dry, intact, normal color. Absent: rash Course Vital Signs 09/11/21 09:41 Temperature 97.8 F Pulse Rate 75 Respiratory 18 Rate Blood Pressure 133/83 O2 Sat by Pulse 97 Oximetry Medical Decision Making - Medical Decision Making 26-year-old presented for flank pain is asymptomatic time did have gross he maturia and history kidney stones this is clinically consistent. Patient we discharged in stable condition return parameters were discussed. - Lab Data Result diagrams: 09/11/21 10:04 09/11/21 11:25 Lab Results 09/11/21 09/11/21 09/11/21 Range/Units 09:52 10:04 11:25 WBC 7.4 (3.8-10.6) k/uL RBC 5.18 (4.30-5.90) m/uL Hgb 16.5 (13.0-17.5) gm/dL Hct 47.9 (39.0-53.0) % MCV 92.4 (80.0-100.0) fL MCH 31.9 (25.0-35.0) pg MCHC 34.5 (31.0-37.0) g/dL RDW 12.5 (11.5-15.5) % Plt Count 257 (150-450) k/uL MPV 8.1 Neutrophils % 72 % Lymphocytes % 18 % Monocytes % 6 % Eosinophils % 2 % Basophils % 1 % Neutrophils # 5.3 (1.3-7.7) k/uL Lymphocytes # 1.3 (1.0-4.8) k/uL Monocytes # 0.4 (0-1.0) k/uL Eosinophils # 0.2 (0-0.7) k/uL Basophils # 0.1 (0-0.2) k/uL Sodium 138 (137-145) mmol/L Potassium 4.4 (3.5-5.1) mmol/L Chloride 108 H (98-107) mmol/L Carbon Dioxide 24 (22-30) mmol/L Anion Gap 6 mmol/L BUN 14 (9-20) mg/dL Creatinine 0.92 (0.66-1.25) mg/dL Est GFR (CKD-EPI)AfAm >90 (>60 ml/min/1.73 sqM) Est GFR (CKD-EPI)NonAf >90 (>60 ml/min/1.73 sqM) Glucose 111 H (74-99) mg/dL Calcium 8.4 (8.4-10.2) mg/dL Total Bilirubin 1.3 (0.2-1.3) mg/dL AST 25 (17-59) U/L ALT 19 (4-49) U/L Alkaline Phosphatase 84 (38-126) U/L Total Protein 6.9 (6.3-8.2) g/dL Albumin 3.7 (3.5-5.0) g/dL Urine Color Dark Red Urine Appearance Cloudy (Clear) Urine pH 6.5 (5.0-8.0) Ur Specific [place] 1.021 (1.001-1.035) Urine Protein 2+ H (Negative) Urine Glucose (UA) Negative (Negative) Urine Ketones Negative (Negative) Urine Blood Large H (Negative) Urine Nitrite Negative (Negative) Urine Bilirubin Negative (Negative) Urine Urobilinogen <2.0 (<2.0) mg/dL Ur Leukocyte Esterase Small H (Negative) Urine RBC >182 H (0-5) /hpf Urine WBC 52 H (0-5) /hpf Urine Mucus Many H (None) /hpf Disposition Clinical Impression: Kidney stone on right side Disposition: HOME SELF-CARE Condition: Stable Instructions (If sedation given, give patient instructions): Kidney Stones (ED) Additional Instructions: Please return to the Emergency Department if symptoms worsen or any other concerns. Prescriptions: Ketorolac [Toradol] 10 mg PO Q8HR #15 tab Ondansetron Odt [Zofran Odt] 4 mg PO Q8HR PRN #10 tab PRN Reason: Nausea Is patient prescribed a controlled substance at d/c from ED?: No Referrals: Koby Roberson MD [Primary Care Provider] - 1-2 days Time of Disposition: 11:45
[2021-09-11 10:09] LABS: Appearance,Urine Cloudy (Clear); Bilirubin,Urine Negative (Negative); Blood,Urine Large (Negative); Color,Urine Dark Red; Glucose,Urine (UA) Negative (Negative); Ketones,Urine Negative (Negative); Leukocyte Esterase,Urine Small (Negative); Mucus,Urine Many /hpf; Nitrite,Urine Negative (Negative); PH, Urine 6.5 (5.0-8.0); Protein,Urine 2+ (Negative); RBC,Urine >182 /hpf (0-5); Specific Gravity,Urine 1.021 (1.001-1.035); Urobilinogen,Urine <2.0 mg/dL (<2.0); WBC,Urine 52 /hpf (0-5)
[2021-09-11 10:11] LABS: Basophils # (A) 0.1 k/uL (0-0.2); Basophils % (A) 1 %; Eosinophils # (A) 0.2 k/uL (0-0.7); Eosinophils % (A) 2 %; HCT 47.9 % (39.0-53.0); HGB 16.5 gm/dL (13.0-17.5); Lymphocytes # (A) 1.3 k/uL (1.0-4.8); Lymphocytes % (A) 18 %; MCH 31.9 pg (25.0-35.0); MCHC 34.5 g/dL (31.0-37.0); MCV 92.4 fL (80.0-100.0); Mean Platelet Volume 8.1; Monocytes # (A) 0.4 k/uL (0-1.0); Monocytes % (A) 6 %; Neutrophils # (A) 5.3 k/uL (1.3-7.7); Neutrophils % (A) 72 %; Platelet Count 257 k/uL (150-450); RBC 5.18 m/uL (4.30-5.90); RDW 12.5 % (11.5-15.5); WBC 7.4 k/uL (3.8-10.6)
--- NOTE | 2021-09-11 10:51 | XR ---
EXAMINATION TYPE: XR KUB DATE OF EXAM: 09/11/2021 Comparison: 02/17/2019 Clinical History: 26-year-old male right flank pain, hx stones Findings: A couple densities in the right mid abdomen measuring 6 mm and 5 mm. Levoconvex curvature centered al [place] the upper lumbar spine probably positional. Lung bases are clear. No dilated small bowel with air-fluid levels. Mild to moderate overall stool burden, more moderate in the right side of the abdomen. Air and stool extends distally to the rectum. No evidence for free intraperitoneal air. Impression: 1. A couple right renal calculi measuring 6 mm and 5 mm. 2. No evidence for free air or bowel obstruction. Mild to moderate stool burden.
[2021-09-11 11:37] LABS: ALT 19 U/L (4-49); AST 25 U/L (17-59); African American GFR (CKD) >90 (>60 ml/min/1.73 sqM); Albumin 3.7 g/dL (3.5-5.0); Alkaline Phosphatase 84 U/L (38-126); Anion Gap 6 mmol/L; Blood Urea Nitrogen 14 mg/dL (9-20); Calcium 8.4 mg/dL (8.4-10.2); Carbon Dioxide 24 mmol/L (22-30); Chloride 108 mmol/L (98-107); Glucose 111 mg/dL (74-99); Non-African American GFR(CKD) >90 (>60 ml/min/1.73 sqM); Potassium 4.4 mmol/L (3.5-5.1); Sodium 138 mmol/L (137-145); Total Bilirubin 1.3 mg/dL (0.2-1.3); Total Protein 6.9 g/dL (6.3-8.2)
[2021-09-11] MEDS ORDERED: ACET/COD 300 MG/30 MG STARTER PACK 6 TAB BTL PO STA (11:46)
[2021-09-11 12:25] VITALS: BP 108/60; PULSE 78; RESP 14; TEMP 97.7
== END 2021-09-11 12:25 | disposition home or self-care (01) ==
LOC: EC 09:40
DX: N20.0 Calculus of kidney (principal); Z88.2 Allergy status to sulfonamides
CPT/HCPCS: 36415; 80053; 85025; 81001; 87086; 74018; 99284; 96374; 96375; J2405; J1885; J1170

== ENCOUNTER 2023-08-27 11:00 | Inpatient (IN) | payer BC ==
[2023-08-27] MEDS: diphenhydrAMINE 50 MG/ML 1 ML VIAL IVP STA (12:02)
[2023-08-27] MEDS: HYDROmorphone 0.5 MG/0.5 ML SYRINGE IVP STA (12:02)
[2023-08-27] MEDS: SODIUM CHLORIDE 0.9% 2,000 ML IV STA (12:03)
[2023-08-27] MEDS: KETOROLAC 15 MG/ML 1 ML VIAL IVP STA (12:03)
[2023-08-27] MEDS: METOCLOPRAMIDE 5 MG/ML 2 ML VIAL IVP STA (12:03)
[2023-08-27 12:04] LABS: Basophils # (A) 0.1 k/uL (0-0.2); Basophils % (A) 1 %; Eosinophils # (A) 0.1 k/uL (0-0.7); Eosinophils % (A) 1 %; HCT 49.7 % (39.0-53.0); HGB 17.5 gm/dL (13.0-17.5); Lymphocytes # (A) 1.9 k/uL (1.0-4.8); Lymphocytes % (A) 20 %; MCH 31.6 pg (25.0-35.0); MCHC 35.2 g/dL (31.0-37.0); MCV 89.7 fL (80.0-100.0); Mean Platelet Volume 8.2; Monocytes # (A) 0.5 k/uL (0-1.0); Monocytes % (A) 5 %; Neutrophils # (A) 6.6 k/uL (1.3-7.7); Neutrophils % (A) 71 %; Platelet Count 259 k/uL (150-450); RBC 5.54 m/uL (4.30-5.90); RDW 11.8 % (11.5-15.5); WBC 9.4 k/uL (3.8-10.6)
--- NOTE | 2023-08-27 12:06 | XR ---
EXAMINATION TYPE: XR KUB DATE OF EXAM: 08/27/2023 COMPARISON: NONE HISTORY: Pain TECHNIQUE: Single supine KUB image of the abdomen is obtained FINDINGS: Dilated loops of small bowel measuring up to 4.4 cm could related to ileus. Developing small bowel ob struction difficult to exclude. No convincing evidence for pneumoperitoneum. Calcifications overlie the right kidney. The lung bases are clear. The osseous structures are intact. IMPRESSION: 1. Dilated loops of small bowel measuring up to 4.4 cm could related to ileus. Developing small kaia l obstruction difficult to exclude. 2. Suspect right-sided nephrolithiasis. Evaluation of the left kidney is limited.
[2023-08-27 12:11] LABS: African American GFR (CKD) 51 (>60 ml/min/1.73 sqM); Albumin 4.8 g/dL (3.5-5.0); Alkaline Phosphatase 89 U/L (38-126); Anion Gap 18 mmol/L; Blood Urea Nitrogen 18 mg/dL (9-20); Carbon Dioxide 15 mmol/L (22-30); Chloride 106 mmol/L (98-107); Glucose 108 mg/dL (74-99); Lipase 64 U/L (23-300); Non-African American GFR(CKD) 44 (>60 ml/min/1.73 sqM); Sodium 139 mmol/L (137-145); Total Bilirubin 3.7 mg/dL (0.2-1.3); Total Protein 8.5 g/dL (6.3-8.2)
[2023-08-27 12:13] LABS: ALT 18 U/L (4-49); AST 28 U/L (17-59); Potassium 4.5 mmol/L (3.5-5.1)
--- NOTE | 2023-08-27 12:39 | ED ---
Abdominal Pain HPI - General Chief Complaint: Abdominal Pain Stated Complaint: Kidney Stone Time Seen by Provider: 08/27/23 11:14 Source: patient, RN notes reviewed Mode of arrival: ambulatory Limitations: no limitations - History of Present Illness Initial Comments: 28-year-old male presents emergency department with chief complaint of left flank pain. Patient states started 3 days ago. Patient states he has nausea vomiting 50 feels dehydrated. Patient had a history of kidney stone states he seen Dr. Mujica in the past for surgical intervention of his kidney stones. Patient dates pain feels very similar he denies any notable hematuria - Related Data Home Medications Medication Instructions Recorded Confirmed No Known Home Medications 08/27/23 08/27/23 Allergies Allergy/AdvReac Type Severity Reaction Status Date / Time sulfamethoxazole Allergy Rash/Hives Verified 08/27/23 15:36 [From ] all over trimethoprim [From ] Allergy Rash/Hives Verified 08/27/23 15:36 all over Review of Systems ROS Statement: Those systems with pertinent positive or pertinent negative responses have been documented in the HPI. ROS Other: All systems not noted in ROS Statement are negative. Past Medical History Additional Past Medical History / Comment(s): kidney stones History of Any Multi-Drug Resistant Organisms: None Reported Past Surgical History: No Surgical Hx Reported Additional Past Surgical History / Comment(s): kidney Past Psychological History: No Psychological Hx Reported Smoking Status: Never smoker Past Alcohol Use History: Occasional Past Drug Use History: Marijuana General Exam Limitations: no limitations General appearance: alert, in no apparent distress Head exam: Present: atraumatic, normocephalic, normal inspection Eye exam: Present: normal appearance, PERRL, EOMI. Absent: scleral icterus, conjunctival injection, periorbital swelling ENT exam: Present: normal exam, normal oropharynx, mucous membranes moist Neck exam: Present: normal inspection, full ROM. Absent: tenderness, meningismus, lymphadenopathy Respiratory exam: Present: normal lung sounds bilaterally. Absent: respiratory distress, wheezes, rales, rhonchi, stridor Cardiovascular Exam: Present: normal rhythm, tachycardia, normal heart sounds. Absent: systolic murmur, diastolic murmur, rubs, gallop, clicks GI/Abdominal exam: Present: soft, normal bowel sounds. Absent: distended, tenderness, guarding, rebound, rigid Back exam: Present: CVA tenderness (L). Absent: CVA tenderness (R) Neurological exam: Present: alert Course Vital Signs 08/27/23 11:12 Temperature 98.2 F Pulse Rate 115 H Respiratory 22 Rate Blood Pressure 128/79 O2 Sat by Pulse 99 Oximetry Medical Decision Making - Medical Decision Making Was pt. sent in by a medical professional or institution (, [facility], MEDICAL RECORDS FIELD TECHNICIAN, urgent care, hospital, or intermediate...) When possible be specific @ -No Did you speak to anyone other than the patient for history (EMS, parent, family, police, friend...)? What history was obtained from this source @ -No Did you review nursing and triage notes (agree or disagree)? Why? @ -I reviewed and agree with nursing and triage notes Were old charts reviewed (outside hosp., previous admission, EMS record, old EKG, old radiological studies, urgent care reports/EKG's, intermediate records)? Report findings @ -No old charts were reviewed Differential Diagnosis (chest pain, altered mental status, abdominal pain women, abdominal pain men, vaginal bleeding, weakness, fever, dyspnea, syncope, headache, dizziness, GI bleed, back pain, seizure, CVA, palpatations, mental h ealth, musculoskeletal)? @ -[Differential Abdominal Pain Men: Appendicitis, cholecystitis, diverticulosis, ischemic bowel, pancreatitis, hepatitis, UTI, gastroenteritis, AAA, incarcerated hernia, bowel obstruction, constipation, inflammatory bowel, hepatitis, peptic ulcer disease, splenic infarction, perforated viscus, testicular torsion, this is not meant to be an all-inclusive list EKG interpreted by me (3pts min.). @ -None X-rays interpreted by me (1pt min.). @ -[X-ray KUB shows moderate dilated loops of bowel, possible stone CT interpreted by me (1pt min.). @ -[CT abdomen pelvis showing evidence of hydronephrosis on the left, stone within the kidney, there is approximately 5 mm stone left ureter approximately 5.5 cm from UVJ U/S interpreted by me (1pt. min.). @ -[None done What testing was considered but not performed or refused? (CT, X-rays, U/S, labs)? Why? @ -None What meds were considered but not given or refused? Why? @ -None Did you discuss the management of the patient with other professionals (professionals i.e. , PA, MEDICAL RECORDS FIELD TECHNICIAN, lab, RT, psych nurse, social worker psychiatric, station superintendent, teacher, ship's electronic warfare officer, child welfare caseworker)? Give summary @ -[I did discuss the case with Dr. Mujica neurology who will consult on the patient I did this case with Dr. Chu for admission for acute kidney injury IV hydration, repeat laboratory studies Was smoking cessation discussed for >3mins.? @ -No Was critical care preformed (if so, how long)? @ -No Were there social determinants of health that impacted care today? How? (Homelessness, low income, unemployed, alcoholism, drug addiction, transport ation, low edu. Level, literacy, decrease access to med. care, assisted, rehab)? @ -No Was there de-escalation of care discussed even if they declined (Discuss DNR or withdrawal of care, Hospice)? DNR status @ -No What co-morbidities impacted this encounter? (DM, HTN, Smoking, COPD, CAD, Cancer, CVA, ARF, Chemo, Hep., AIDS, mental health diagnosis, sleep apnea, morbid obesity)? @ -None Was patient admitted / discharged? Hospital course, mention meds given and route, prescriptions, significant lab abnormalities, going to OR and other pertinent info. @ -[h admitted patient for acute kidney injury related dehydration, plus ketones in urinalysis. Patient was given fluid bolus, start maintenance fluids. Patient will have urology consult. Patient is n.p.o. until evaluated by urology Undiagnosed new problem with uncertain prognosis? @ -No Drug Therapy requiring intensive monitoring for toxicity (Heparin, Nitro, Insulin, Cardizem)? @ -No Were any procedures done? @ -No Diagnosis/symptom? @ -Left renal calculi, acute kidney injury Acute, or Chronic, or Acute on Chronic? @ -[Acute Uncomplicated (without systemic symptoms) or Complicated (systemic symptoms)? @ -Complicated Side effects of treatment? @ -No Exacerbation, Progression, or Severe Exacerbation? @ -No Poses a threat to life or bodily function? How? (Chest pain, USA, ME, pneumonia, PE, COPD, DKA, ARF, appy, cholecystitis, CVA, Diverticulitis, Homicidal, Suicidal, threat to staff... and all critical care pts) @ -No - Lab Data Result diagrams: 08/27/23 11:52 08/27/23 11:52 Lab Results 08/27/23 08/27/23 08/27/23 Range/Units 11:52 11:52 13:14 WBC 9.4 (3.8-10.6) k/uL RBC 5.54 (4.30-5.90) m/uL Hgb 17.5 (13.0-17.5) gm/dL Hct 49.7 (39.0-53.0) % MCV 89.7 (80.0-100.0) fL MCH 31.6 (25.0-35.0) pg MCHC 35.2 (31.0-37.0) g/dL RDW 11.8 (11.5-15.5) % Plt Count 259 (150-450) k/uL MPV 8.2 Neutrophils % 71 % Lymphocytes % 20 % Monocytes % 5 % Eosinophils % 1 % Basophils % 1 % Neutrophils # 6.6 (1.3-7.7) k/uL Lymphocytes # 1.9 (1.0-4.8) k/uL Monocytes # 0.5 (0-1.0) k/uL Eosinophils # 0.1 (0-0.7) k/uL Basophils # 0.1 (0-0.2) k/uL Sodium 139 (137-145) mmol/L Potassium 4.5 (3.5-5.1) mmol/L Chloride 106 (98-107) mmol/L Carbon Dioxide 15 L (22-30) mmol/L Anion Gap 18 mmol/L BUN 18 (9-20) mg/dL Creatinine 2.02 H (0.66-1.25) mg/dL Est GFR (CKD-EPI)AfAm 51 (>60 ml/min/1.73 sqM) Est GFR (CKD-EPI)NonAf 44 (>60 ml/min/1.73 sqM) Glucose 108 H (74-99) mg/dL Calcium 10.0 (8.4-10.2) mg/dL Total Bilirubin 3.7 H (0.2-1.3) mg/dL AST 28 (17-59) U/L ALT 18 (4-49) U/L Alkaline Phosphatase 89 (38-126) U/L Total Protein 8.5 H (6.3-8.2) g/dL Albumin 4.8 (3.5-5.0) g/dL Lipase 64 (23-300) U/L Urine Color Yellow Urine Appearance Clear (Clear) Urine pH 6.0 (5.0-8.0) Ur Specific [place] 1.023 (1.001-1.035) Urine Protein 1+ H (Negative) Urine Glucose (UA) Negative (Negative) Urine Ketones 4+ H (Negative) Urine Blood Large H (Negative) Urine Nitrite Negative (Negative) Urine Bilirubin Negative (Negative) Urine Urobilinogen 2.0 (<2.0) mg/dL Ur Leukocyte Esterase Trace H (Negative) Urine RBC 54 H (0-5) /hpf Urine WBC 14 H (0-5) /hpf Ur Squamous Epith Cells <1 (0-4) /hpf Hyaline Casts 1 (0-2) /lpf Urine Mucus Few H (None) /hpf Disposition Clinical Impression: REY (acute kidney injury), Left ureteral calculus Disposition: ADMITTED IP TO THIS HOSP Condition: Fair Referrals: Koby Roberson MD [Primary Care Provider] - 1-2 days Time of Disposition: 15:41
[2023-08-27 13:31] LABS: Appearance,Urine Clear (Clear); Bilirubin,Urine Negative (Negative); Blood,Urine Large (Negative); Color,Urine Yellow; Glucose,Urine (UA) Negative (Negative); Hyaline Casts,Urine 1 /lpf (0-2); Ketones,Urine 4+ (Negative); Leukocyte Esterase,Urine Trace (Negative); Mucus,Urine Few /hpf; Nitrite,Urine Negative (Negative); Protein,Urine 1+ (Negative); RBC,Urine 54 /hpf (0-5); Specific Gravity,Urine 1.023 (1.001-1.035); Squamous Epithelial Cell,Urine <1 /hpf (0-4); WBC,Urine 14 /hpf (0-5)
--- NOTE | 2023-08-27 13:56 | CT ---
EXAMINATION TYPE: CT abdomen pelvis wo con DATE OF EXAM: 08/27/2023 COMPARISON: 02/18/2019 HISTORY: Left flank pain, history of renal stones CT DLP: 374.7 mGycm Examination of the solid and hollow viscera is limited given the lack of contrast. FINDINGS: LUNG BASES: No evidence for nodule. No evidence for infiltrate. LIVER/GB: The gallbladder is unremarkable. No space-occupying hepatic lesion. PANCREAS: No pancreatic mass identified. No inflammatory process seen. SPLEEN: No evidence for splenomegaly. No intrasplenic lesions seen. ADRENALS: No adrenal nodules identified. No evidence for thickening. KIDNEYS: No evidence for renal mass. Mild left-sided hydronephrosis secondary to a distal left ureter al calculus Approximately 5.5 cm from the UVJ. There is some vague nonobstructing calculi right kidne y measuring up to 6 mm. Smaller sub-4 mm calculi lower pole left kidney. BOWEL: Appendix has a normal appearance. No evidence of bowel obstruction. No inflammatory process. Lymph nodes: No evidence for adenopathy greater than 1 cm. Abdominal aorta: Atheromatous changes seen. No evidence for aneurysm. Genital organs: No significant abnormality. Other: No significant abnormality. IMPRESSION: Mild left-sided hydronephrosis secondary to a distal left ureteral calculus Approximately 5.5 cm from the UVJ.
[2023-08-27] MEDS ORDERED: NALOXONE 0.4 MG/ML 1 ML VIAL IV PRN (15:48)
[2023-08-27] MEDS: SODIUM CHLORIDE 0.9% 1,000 ML IV SCH (17:05)
[2023-08-27] MEDS: HYDROmorphone 0.5 MG/0.5 ML SYRINGE IVP PRN (19:22)
[2023-08-28] MEDS: KETOROLAC 15 MG/ML 1 ML VIAL IVP PRN (09:20)
--- NOTE | 2023-08-28 09:22 | P.GSCN ---
History of Present Illness Consult date: 08/28/23 Reason for Consult: Left ureteral calculus Requesting physician: Ruben Fleming Jr History of present illness: The patient is a 28-year-old white male with a history of urolithiasis. He underwent left ureteroscopy with Holmium laser lithotripsy and stent placement for a left ureteral calculus and left renal calculi in February 2019. Narrowing of the left distal ureter was noted, requiring balloon dilation. His calculi were composed predominantly of calcium oxalate. He was admitted yesterday with a 3-day history of left flank pain, associated with nausea and vomiting. Laboratory studies showed evidence of renal insufficiency. CT scan showed bilateral renal calculi, and mild left hydronephrosis due to a 6 mm left distal ureteral calculus. He was admitted for IV hydration and parenteral analgesics. He reports persistent flank pain this morning. Review of Systems - Constitutional Denies chills, Denies fever - Gastrointestinal Reports nausea, Reports vomiting - Genitourinary Reports flank pain, Reports kidney stones, Denies dysuria, Denies hematuria Past Medical History Additional Past Medical History / Comment(s): kidney stones History of Any Multi-Drug Resistant Organisms: None Reported Past Surgical History: No Surgical Hx Reported Additional Past Surgical History / Comment(s): laser tx for kidney stones approx 2-3 years ago. Past Anesthesia/Blood Transfusion Reactions: No Reported Reaction Past Psychological History: No Psychological Hx Reported Smoking Status: Current every day smoker Past Alcohol Use History: Occasional Past Drug Use History: Marijuana Additional Drug Use History / Comment(s): Patient does not smoke tobacco, he is a [facility] smoker. Medications and Allergies Home Medications Medication Instructions Recorded Confirmed Type No Known Home Medications 08/27/23 08/27/23 History Allergies Allergy/AdvReac Type Severity Reaction Status Date / Time sulfamethoxazole Allergy Rash/Hives Verified 08/27/23 15:36 [From ] all over trimethoprim [From ] Allergy Rash/Hives Verified 08/27/23 15:36 all over Surgical - Exam Vital Signs Temp Pulse Resp BP Pulse Ox 98.2 F 115 H 22 128/79 99 08/27/23 11:12 08/27/23 11:12 08/27/23 11:12 08/27/23 11:12 08/27/23 11:12 - General well developed, well nourished, moderate pain - Respiratory normal respiratory effort - Abdomen Abdomen: soft, tender (Moderate left CVA tenderness), no guarding, no rigid, no rebound - Genitourinary normal penis with no external lesions, testicles non-tender - Psychiatric oriented to time, oriented to person, oriented to place, speech is normal, memory intact Results - Labs 08/27/23 11:52 08/27/23 11:52 Abnormal Lab Results - Last 24 Hours (Table) 08/27/23 08/27/23 Range/Units 11:52 13:14 Carbon Dioxide 15 L (22-30) mmol/L Creatinine 2.02 H (0.66-1.25) mg/dL Glucose 108 H (74-99) mg/dL Total Bilirubin 3.7 H (0.2-1.3) mg/dL Total Protein 8.5 H (6.3-8.2) g/dL Urine Protein 1+ H (Negative) Urine Ketones 4+ H (Negative) Urine Blood Large H (Negative) Ur Leukocyte Esterase Trace H (Negative) Urine RBC 54 H (0-5) /hpf Urine WBC 14 H (0-5) /hpf Urine Mucus Few H (None) /hpf Diabetes panel 08/27/23 Range/Units 11:52 Sodium 139 (137-145) mmol/L Potassium 4.5 (3.5-5.1) mmol/L Chloride 106 (98-107) mmol/L Carbon Dioxide 15 L (22-30) mmol/L BUN 18 (9-20) mg/dL Creatinine 2.02 H (0.66-1.25) mg/dL Glucose 108 H (74-99) mg/dL Calcium 10.0 (8.4-10.2) mg/dL AST 28 (17-59) U/L ALT 18 (4-49) U/L Alkaline Phosphatase 89 (38-126) U/L Total Protein 8.5 H (6.3-8.2) g/dL Albumin 4.8 (3.5-5.0) g/dL Calcium panel 08/27/23 Range/Units 11:52 Calcium 10.0 (8.4-10.2) mg/dL Albumin 4.8 (3.5-5.0) g/dL Pituitary panel 08/27/23 Range/Units 11:52 Sodium 139 (137-145) mmol/L Potassium 4.5 (3.5-5.1) mmol/L Chloride 106 (98-107) mmol/L Carbon Dioxide 15 L (22-30) mmol/L BUN 18 (9-20) mg/dL Creatinine 2.02 H (0.66-1.25) mg/dL Glucose 108 H (74-99) mg/dL Calcium 10.0 (8.4-10.2) mg/dL Adrenal panel 08/27/23 Range/Units 11:52 Sodium 139 (137-145) mmol/L Potassium 4.5 (3.5-5.1) mmol/L Chloride 106 (98-107) mmol/L Carbon Dioxide 15 L (22-30) mmol/L BUN 18 (9-20) mg/dL Creatinine 2.02 H (0.66-1.25) mg/dL Glucose 108 H (74-99) mg/dL Calcium 10.0 (8.4-10.2) mg/dL Total Bilirubin 3.7 H (0.2-1.3) mg/dL AST 28 (17-59) U/L ALT 18 (4-49) U/L Alkaline Phosphatase 89 (38-126) U/L Total Protein 8.5 H (6.3-8.2) g/dL Albumin 4.8 (3.5-5.0) g/dL - Imaging CT scan - abdomen: report reviewed, image reviewed Assessment and Plan (1) Hydronephrosis with renal and ureteral calculous obstruction Current Visit: Yes Status: Acute Code(s): N13.2 - HYDRONEPHROSIS WITH RENAL AND URETERAL CALCULOUS OBSTRUCTION SNOMED Code(s): 425894448 Plan: The patient is experiencing persistent left flank pain due to his left distal ureteral calculus. Given this and the renal insufficiency, I have advised him to undergo ureteroscopic removal of the calculus with stent placement. This was reviewed with him in detail, including potential risks which include anesthesia, ureteral injury, infection, and inability to successfully remove the calculus. He declines removal of his renal calculi. Time with Patient: Greater than 30
[2023-08-28 13:15] LABS: Basophils # (A) 0.1 k/uL (0-0.2); Basophils % (A) 1 %; Eosinophils # (A) 0.1 k/uL (0-0.7); Eosinophils % (A) 1 %; HGB 16.1 gm/dL (13.0-17.5); Lymphocytes # (A) 1.5 k/uL (1.0-4.8); Lymphocytes % (A) 17 %; MCH 32.2 pg (25.0-35.0); MCV 92.2 fL (80.0-100.0); Mean Platelet Volume 8.4; Monocytes # (A) 0.5 k/uL (0-1.0); Monocytes % (A) 6 %; Neutrophils # (A) 6.9 k/uL (1.3-7.7); Neutrophils % (A) 74 %; Platelet Count 194 k/uL (150-450); RBC 4.99 m/uL (4.30-5.90); RDW 11.8 % (11.5-15.5); WBC 9.2 k/uL (3.8-10.6)
[2023-08-28] MEDS: ONDANSETRON 4 MG/2 ML VIAL IVP PRN (13:18)
[2023-08-28] MEDS: PANTOPRAZOLE 40 MG/10 ML VIAL IVP SCH (13:19)
[2023-08-28 13:26] LABS: ALT 11 U/L (4-49); AST 18 U/L (17-59); African American GFR (CKD) 57 (>60 ml/min/1.73 sqM); Albumin/Globulin Ratio 1.3; Alkaline Phosphatase 78 U/L (38-126); Anion Gap 12 mmol/L; Blood Urea Nitrogen 17 mg/dL (9-20); Calcium 8.9 mg/dL (8.4-10.2); Carbon Dioxide 18 mmol/L (22-30); Chloride 108 mmol/L (98-107); Glucose 67 mg/dL (74-99); Non-African American GFR(CKD) 49 (>60 ml/min/1.73 sqM); Potassium 4.8 mmol/L (3.5-5.1); Sodium 138 mmol/L (137-145); Total Bilirubin 2.8 mg/dL (0.2-1.3)
[2023-08-28] MEDS: LACTATED RINGERS 1,000 ML IV ONE (14:45)
[2023-08-28] MEDS ORDERED: ROCURONIUM 10 MG/ML (5 ML VIAL) IV ONE (15:51)
[2023-08-28] MEDS ORDERED: SUCCINYLCHOLINE CHLORIDE 200 MG/10 ML VIAL IV ONE (15:51)
[2023-08-28] MEDS ORDERED: PROPOFOL 10 MG/ML 20 ML VIAL IV ONE (15:51)
[2023-08-28] MEDS ORDERED: LIDOCAINE 1% INJ 10MG/ML (20 ML MDV) ONE (15:51)
[2023-08-28] MEDS ORDERED: MIDAZOLAM 2 MG/2 ML VIAL ONE (15:51)
[2023-08-28] MEDS ORDERED: fentaNYL (PF) 50 MCG/ML 2 ML AMP ONE (15:51)
[2023-08-28] MEDS ORDERED: GLYCOPYRROLATE 0.2 MG/ML 2 ML VIAL ONE (15:51)
[2023-08-28] MEDS ORDERED: NEOSTIGMINE 1 MG/ML 10 ML VIAL ONE (15:51)
[2023-08-28] MEDS: IOPAMIDOL-370 50ML BTL MISCELLANE ONE (16:33)
--- NOTE | 2023-08-28 16:45 | P.OP ---
Date of Procedure: 08/28/23 Preoperative Diagnosis: Left ureteral calculus Postoperative Diagnosis: Same Procedure(s) Performed: Cystoscopy, left retrograde pyelogram, left ureteroscopy with Holmium laser lithotripsy, left ureteral stent insertion Anesthesia: MARYLINA Surgeon: Dale Mujica Estimated Blood Loss (ml): 0 IV fluids (ml): 300 Pathology: none sent Condition: stable Disposition: PACU Indications for Procedure: The patient is a 28-year-old white male with a history of urolithiasis. He underwent left ureteroscopy with Holmium laser lithotripsy and stent placement for a left ureteral calculus and left renal calculi in February 2019. Narrowing of the left distal ureter was noted, requiring balloon dilation. His calculi were composed predominantly of calcium oxalate. He was admitted yesterday with a 3-day history of left flank pain, associated with nausea and vomiting. Laboratory studies showed evidence of renal insufficiency. CT scan showed bilateral renal calculi, and mild left hydronephrosis due to a 6 mm left distal ureteral calculus. He was admitted for IV hydration and parenteral analgesics. He has elected to undergo ureteroscopic removal of the calculus. Operative Findings: Impacted left distal ureteral calculus, fragmented completely. Description of Procedure: The patient was taken to the operating room and placed in the dorsolithotomy position, with legs supported in Raza stirrups. The external genitalia was prepped and draped sterilely. The 30 lens was used to introduce the 21-Lebanese Tarango cystoscopic sheath through the urethra and into the bladder under direct vision. The prostatic urethra was unremarkable. The bladder was examined in its entirety. Both ureteral orifices were normal anatomic location and configuration. No tumors or foreign bodies were seen. Using a 10 Lebanese cone-tip catheter, a left retrograde pyelogram was performed. The calculus was seen just distal to the iliac vessels. The cone-tip catheter was advanced to dilate the ureteral orifice. The cystoscope was then removed, and the Tarango semirigid ureteroscope was advanced into the bladder. The left ureteral orifice was cannulated, and the ureteroscope was slowly advanced under direct vision, up to the calculus. The 365 micron Holmium laser probe was passed through the ureteroscope, and lithotripsy was performed. As fragments of the calculus broke away, they passed distally into the bladder. Once this was completed, the ureteroscope was advanced up to the left proximal ureter. No additional calculi were seen. As the ureteroscope was withdrawn, the ureter was inspected. Moderate edema was noted where the calculus was impacted. There was no evidence of ureteral trauma. A 0.035 inch Glidewire was passed through the ureteroscope and up to the left renal pelvis, where it coiled. The ureteroscope was removed, and the Glidewire was backloaded into the cystoscope, which was passed into the bladder. A 26 cm, 4.8 Lebanese double-J ureteral stent was placed over the wire. Proper stent positioning was verified fluoroscopically and endoscopically. The bladder was emptied and the cystoscope removed. The string left attached to the end of the stent was secured to the patient's penis using a Tegaderm dressing. The patient tolerated the procedure well and was taken to the recovery room in stable condition. LUIS E CALVILLO Report: Procedure Acuity: Urgent Stone Size and Location: 6 mm, left distal ureter Ureteral Dilation: No Ureteral Access Sheath Used: No Stone Sent for Analysis: No All Stones/Fragments Were Removed: Yes Complications: No Preoperative Antibiotics Given: Yes Stent Placed: Yes If Stent Placed, Was String Left Attached: Yes If Stent Placed, When is it to be Removed: 1 week
--- NOTE | 2023-08-28 20:09 | P.HPIM ---
History of Present Illness H&P Date: 08/28/23 Chief Complaint: Left flank pain This is a pleasant 28-year-old gentleman with past medical history significant for kidney stones since age 11, history of urolithiasis, daily smoking of marijuana and multiple other medical issues presented to the ER with complaints of left flank pain, nausea and vomiting over the last 4 days. Denies hematuria. patient reports he is established with Dr. Tom from urology. Afebrile, normal WBC-unremarkable hematology. Bicarb 15, BUN 18, creatinine 2.02 on admission, repeat labs ordered. UA reported 4+ ketones, large amount of blood, negative for nitrates, trace leukocyte esterase, [address] pelvis CT reported mild left-sided hydronephrosis secondary to a distal left ureteral calculus approximately 5.5 cm from the UVJ, vague nonobstructing calculi right kidney measuring up to 6 mm, smaller sub-4 mm calculi lower pole left kidney. Review of Systems ROS Statement: Those systems with pertinent positive or pertinent negative responses have been documented in the HPI. ROS Other: All systems not noted in ROS Statement are negative. Past Medical History Additional Past Medical History / Comment(s): kidney stones History of Any Multi-Drug Resistant Organisms: None Reported Past Surgical History: No Surgical Hx Reported Additional Past Surgical History / Comment(s): laser tx for kidney stones approx 2-3 years ago. Past Anesthesia/Blood Transfusion Reactions: No Reported Reaction Past Psychological History: No Psychological Hx Reported Smoking Status: Current every day smoker Past Alcohol Use History: Occasional Past Drug Use History: Marijuana Additional Drug Use History / Comment(s): Patient does not smoke tobacco, he is a [employer] smoker. Medications and Allergies Home Medications Medication Instructions Recorded Confirmed Type No Known Home Medications 08/27/23 08/27/23 History Allergies Allergy/AdvReac Type Severity Reaction Status Date / Time [place] nut Allergy Anaphylaxis Verified 08/28/23 14:38 sulfamethoxazole Allergy Rash/Hives Verified 08/27/23 15:36 [From ] all over trimethoprim [From ] Allergy Rash/Hives Verified 08/27/23 15:36 all over Physical Exam Vitals: Vital Signs Temp Pulse Pulse Resp BP BP Pulse Ox 08/28/23 18:38 65 113/66 100 08/28/23 18:08 68 124/75 99 08/28/23 17:41 97.7 F 73 18 124/75 99 08/28/23 17:16 64 20 122/59 100 08/28/23 16:57 61 18 130/57 96 08/28/23 16:42 97.4 F L 88 16 147/66 97 08/28/23 14:36 97.9 F 72 16 120/65 100 08/28/23 11:40 98.8 F 71 18 108/64 99 08/28/23 09:33 74 16 08/28/23 08:00 97.9 F 74 16 113/61 99 08/28/23 02:00 97.6 F 77 16 107/63 98 08/27/23 23:30 98.6 F 85 20 137/78 99 08/27/23 21:14 98.3 F 70 19 119/72 100 Intake and Output 08/28/23 08/28/23 08/28/23 06:59 14:59 22:59 Intake Total 100 650 Output Total 100 Balance 100 550 Intake: IV 100 650 Output: Urine 100 Estimated Blood Loss 0 Other: Voiding Method Toilet Toilet Urinal Weight 72.575 kg Results CBC & Chem 7: 08/28/23 12:30 08/28/23 12:30 Labs: Abnormal Lab Results - Last 24 Hours (Table) 08/28/23 Range/Units 12:30 Chloride 108 H (98-107) mmol/L Carbon Dioxide 18 L (22-30) mmol/L Creatinine 1.86 H (0.66-1.25) mg/dL Glucose 67 L (74-99) mg/dL Total Bilirubin 2.8 H (0.2-1.3) mg/dL Thrombosis Risk Factor Assmnt - Choose All That Apply Other Risk Factors: No Each Risk Factor Represents 2 Points: Major surgery Other congenital or acquired thrombophilia - If yes, enter type in comment: No Thrombosis Risk Factor Assessment Total Risk Factor Score: 2 Thrombosis Risk Factor Assessment Level: Low Risk Assessment and Plan Assessment: Left flank pain related to renal calculi, ureteral calculus obstruction, in a patient with history of kidney stones since age 11, history of urolithiasis Left hydronephrosis, mild secondary to the above Acute renal insufficiency Possible PTH adenoma, workup in progress Daily marijuana use, counseled. Plan: Continue on current medication regimen, monitoring and symptomatic treatm ent. IV fluid hydration, Pain management.PTH level ordered, ruling out PTH adenoma-patient has had kidney stones since age 11 with no prior workup that he remembers. Evaluated by urology, cystoscopy/pyelogram/ureteroscopy with lithotripsy and left ureteral stent insertion pending. PPI ordered for GI prophylaxis. The impression and plan of care has been dictated as directed. : I performed a history and examination of this patient, discussed the same with the dictator. I agree with the dictator's note ,documented as a scribe. Any additional findings or plans will be noted.
[2023-08-28 22:19] VITALS: RESP 16
--- NOTE | 2023-08-29 07:30 | FL ---
EXAMINATION TYPE: FL guidance operating room Intraoperative/procedural fluoroscopic services were pro vided. Total fluoroscopy time is 14 seconds with a total of 2 submitted images to PACS. Please see th e operative/procedural note for further details. DAP: [id number]
--- NOTE | 2023-08-29 08:30 | P.PN ---
Subjective Progress Note Date: 08/29/23 Principal diagnosis: Left ureteral calculus Patient was admitted with left hydronephrosis due to a 6 mm left distal ureteral calculus. He underwent ureteroscopic removal of the calculus and August 28. A ureteral stent was placed. This morning, he reports slight dysuria which is improving, as well as dull left flank discomfort. Objective - Vital Signs Vital signs: Vital Signs Temp 98.7 F 08/29/23 02:00 Pulse 67 08/29/23 02:00 Resp 16 08/29/23 02:00 BP 111/61 08/29/23 02:00 Pulse Ox 90 L 08/29/23 02:00 FiO2 Intake & Output 08/28/23 08/28/23 08/29/23 06:59 18:59 06:59 Intake Total 750 Output Total 100 Balance 650 Weight 72.575 kg Intake: IV 750 Output: Urine 100 Estimated Blood Loss 0 Other: Voiding Method Toilet Toilet Toilet Urinal Urinal # Voids 3 - Constitutional General appearance: Present: average body habitus, cooperative - Gastrointestinal General gastrointestinal: Present: soft. Absent: distended, tenderness - Psychiatric Psychiatric: Present: A&O x's 3 - Labs CBC & Chem 7: 08/28/23 12:30 08/28/23 12:30 Labs: Abnormal Lab Results - Last 24 Hours (Table) 08/28/23 Range/Units 12:30 Chloride 108 H (98-107) mmol/L Carbon Dioxide 18 L (22-30) mmol/L Creatinine 1.86 H (0.66-1.25) mg/dL Glucose 67 L (74-99) mg/dL Total Bilirubin 2.8 H (0.2-1.3) mg/dL Microbiology - Last 24 Hours (Table) 08/27/23 13:14 Urine Culture - Final Urine,Voided Assessment and Plan (1) Hydronephrosis with renal and ureteral calculous obstruction Current Visit: Yes Status: Acute Code(s): N13.2 - HYDRONEPHROSIS WITH RENAL AND URETERAL CALCULOUS OBSTRUCTION SNOMED Code(s): 751949094 Plan: The patient has undergone successful removal of his left ureteral calculus. He was reassured that the mild discomfort he is experiencing is normal following this procedure and is due at least in part to the ureteral stent. He is urologically stable for discharge and will follow-up with me in 1 week for stent removal.
[2023-08-29 11:25] LABS: BUN/Creat Ratio 9.71 Ratio (12.00-20.00); Blood Urea Nitrogen 13.6 mg/dL (9.0-27.0); Calcium 8.5 mg/dL (8.7-10.3); Carbon Dioxide 18.3 mmol/L (21.6-31.8); Chloride 102 mmol/L (96-109); Glucose 64 mg/dL (70-110); Potassium 4.3 mmol/L (3.5-5.5); Sodium 136 mmol/L (135-145)
--- NOTE | 2023-08-29 11:34 | P.DS ---
Providers Date of admission: 08/27/23 16:15 Expected date of discharge: 08/29/23 Attending physician: Ruben Fleming Consults: 08/27/23 15:48 Consult Physician Urgent Consulting Provider: Dale Mujica Consult Reason/Comments: Ureteral calculus Do you want consulting provider notified?: Already Contacted Primary care physician: Koby [facility] Course: Final Diagnoses: Left flank pain related to renal calculi, ureteral calculus obstruction, in a patient with history of kidney stones since age 11, history of urolithiasis, status post Cystoscopy, left retrograde pyelogram, left ureteroscopy with Holmium laser lithotripsy, left ureteral stent insertion. Left hydronephrosis, mild secondary to the above Acute renal insufficiency Possible PTH adenoma, workup in progress Daily marijuana use, counseled. Hospital course: this is a pleasant 28-year-old gentleman with past medical history significant for kidney stones since age 11, history of urolithiasis, daily smoking of marijuana and multiple other medical issues presented to the ER with complaints of left flank pain, nausea and vomiting over the last 4 days. Denies hematuria. patient reports he is established with Dr. Tom from urology. Afebrile, normal WBC-unremarkable hematology. Bicarb 15, BUN 18, creatinine 2.02 on admission, repeat labs ordered. UA reported 4+ ketones, large amount of blood, negative for nitrates, trace leukocyte esterase, 14 urine WBCs.Abdomen pelvis CT reported mild left-sided hydronephrosis secondary to a distal left ureteral calculus approximately 5.5 cm from the UVJ, vague nonobstructing calculi right kidney measuring up to 6 mm, smaller sub-4 mm calculi lower pole left kidney. IV fluid hydration, Pain management.PTH level ordered, ruling out PTH adenoma- patient has had kidney stones since age 11 with no prior workup that he remembers. Evaluated by urology, cystoscopy/pyelogram/ureteroscopy with lithotripsy and left ureteral stent insertion pending. PPI ordered for GI prophylaxis. 08/29/2023 underwent ureteroscopy with successful removal of the left ureteral calculus yesterday with ureteral stent placed. Reports improvement in left flank pain. Afebrile. Labs pending. Maintaining O2 sats in the 90s on room air. Cleared by urology for discharge. PTH within normal limits 22.1. Patient will be discharged home today in a stable condition with guarded prognosis pending BMP. The impression and plan of care has been dictated as directed. : I performed a history and examination of this patient, discussed the same with the dictator. I agree with the dictator's note ,documented as a scribe. Any additional findings or plans will be noted. Patient Condition at Discharge: Stable Plan - Discharge Summary Discharge Rx Participant: Yes New Discharge Prescriptions: No Action No Known Home Medications Discharge Medication List No Known Home Medications 08/27/23 [History] Follow up Appointment(s)/Referral(s): Dale Mujica MD [STAFF PHYSICIAN] - 09/04/23 Koby Roberson MD [Primary Care Provider] - 3 Days
[2023-08-29 13:14] VITALS: BP 117/64; PULSE 68; TEMP 98.4
== END 2023-08-29 13:36 | disposition home or self-care (01) | DRG 661 ==
LOC: EC 11:00 → 5NMEDONC 16:15
PROVIDERS: ADMIT Family Medicine; ATTEND Family Medicine
PROC: 0T778DZ Dilation of Left Ureter with Intraluminal Device, Via Natural or Artificial Opening Endoscopic (ICD-10-PCS; principal; 2023-08-28 08:45)
PROC: BT1F1ZZ Fluoroscopy of Left Kidney, Ureter and Bladder using Low Osmolar Contrast (ICD-10-PCS; 2023-08-28 08:45)
PROC: 0TC78ZZ Extirpation of Matter from Left Ureter, Via Natural or Artificial Opening Endoscopic (ICD-10-PCS; 2023-08-28 08:45)
DX: N13.2 Hydronephrosis with renal and ureteral calculous obstruction (principal); N17.9 Acute kidney failure, unspecified; Z87.442 Personal history of urinary calculi; F17.210 Nicotine dependence, cigarettes, uncomplicated; E86.0 Dehydration; D35.1 Benign neoplasm of parathyroid gland; Z88.2 Allergy status to sulfonamides; Z91.018 Allergy to other foods
CPT/HCPCS: 36415; 74018; 74176; 80048; 80053; 81001; 83690; 83970; 85025; 87086; 96361; 96374; 96375; 96376; 99285

== ENCOUNTER 2023-08-31 22:44 | Emergency (ER) | payer BC ==
[2023-08-31 23:02] VITALS: RESP 18
[2023-09-01 00:03] LABS: Basophils # (A) 0.1 k/uL (0-0.2); Basophils % (A) 1 %; Eosinophils # (A) 0.2 k/uL (0-0.7); Eosinophils % (A) 4 %; HCT 47.2 % (39.0-53.0); HGB 16.7 gm/dL (13.0-17.5); Lymphocytes # (A) 1.8 k/uL (1.0-4.8); Lymphocytes % (A) 37 %; MCH 31.4 pg (25.0-35.0); MCHC 35.4 g/dL (31.0-37.0); MCV 88.7 fL (80.0-100.0); Mean Platelet Volume 8.8; Monocytes # (A) 0.4 k/uL (0-1.0); Monocytes % (A) 7 %; Neutrophils # (A) 2.3 k/uL (1.3-7.7); Neutrophils % (A) 47 %; Platelet Count 249 k/uL (150-450); RBC 5.32 m/uL (4.30-5.90); RDW 12.1 % (11.5-15.5); WBC 4.9 k/uL (3.8-10.6)
[2023-09-01 00:25] LABS: ALT 12 U/L (4-49); AST 25 U/L (17-59); African American GFR (CKD) >90 (>60 ml/min/1.73 sqM); Albumin 4.5 g/dL (3.5-5.0); Alkaline Phosphatase 73 U/L (38-126); Anion Gap 9 mmol/L; Blood Urea Nitrogen 10 mg/dL (9-20); Calcium 9.9 mg/dL (8.4-10.2); Carbon Dioxide 27 mmol/L (22-30); Chloride 103 mmol/L (98-107); Glucose 89 mg/dL (74-99); Non-African American GFR(CKD) >90 (>60 ml/min/1.73 sqM); Sodium 139 mmol/L (137-145); Total Bilirubin 1.5 mg/dL (0.2-1.3); Total Protein 7.9 g/dL (6.3-8.2)
--- NOTE | 2023-09-01 00:26 | XR ---
EXAM: XR Abdomen, 1 View CLINICAL HISTORY: ITS.REASON XR Reason: abdominal pain TECHNIQUE: Frontal supine view of the abdomen/pelvis. COMPARISON: No previous studies. FINDINGS: Gastrointestinal tract: Mild to moderate quantity of stool throughout the colon. Nonspecific bowel gas pattern. No dilation. Organs: 4 discrete nonobstructing right renal calculi are noted the largest of which measures 0.5 cm in extent. Bones/joints: Levoscoliosis. No acute fracture. Tubes, lines and devices: Left-sided double pigtail catheter is noted in place. IMPRESSION: 1. Several nonobstructing subcentimeter right renal calculi. 2. Left-sided double pigtail catheter is noted in place. 3. Nonspecific bowel gas pattern.
[2023-09-01 02:03] LABS: Appearance,Urine Cloudy (Clear); Bacteria,Urine Rare /hpf; Bilirubin,Urine Negative (Negative); Blood,Urine Large (Negative); Color,Urine Colorless; Glucose,Urine (UA) Negative (Negative); Ketones,Urine Negative (Negative); Leukocyte Esterase,Urine Large (Negative); Nitrite,Urine Negative (Negative); PH, Urine 6.5 (5.0-8.0); Protein,Urine Trace (Negative); RBC,Urine 17 /hpf (0-5); Specific Gravity,Urine 1.004 (1.001-1.035); Squamous Epithelial Cell,Urine <1 /hpf (0-4); Urobilinogen,Urine <2.0 mg/dL (<2.0); WBC,Urine 23 /hpf (0-5)
--- NOTE | 2023-09-01 02:40 | ED ---
Abdominal Pain HPI - General Chief Complaint: Abdominal Pain Stated Complaint: POST COMPLICATIONS Time Seen by Provider: 08/31/23 22:50 Source: patient Mode of arrival: ambulatory Limitations: no limitations - History of Present Illness Initial Comments: 28-year-old male with past medical history of renal stones who presents to the emergency department reporting to left lower quadrant abdominal pain. Patient had a cystoscopy with ureteroscopy on the sixth for renal stones. He had a left-sided stent placed. Patient states that this evening he was sitting down when he felt a tug on the end of his penis. He feels as if his stent got dislodged as he is now having cramping on the left side. States he has had some issues with his urination. Patient denies significant hematuria. No fevers. He is not currently on any antibiotics. He denies any flank pain. No issues with his bowel movements. No other alleviating, precipitating modifying factors - Related Data Home Medications Medication Instructions Recorded Confirmed No Known Home Medications 08/27/23 08/27/23 Allergies Allergy/AdvReac Type Severity Reaction Status Date / Time [place] nut Allergy Anaphylaxis Verified 08/28/23 14:38 sulfamethoxazole Allergy Rash/Hives Verified 08/27/23 15:36 [From Septra] all over trimethoprim [From Septra] Allergy Rash/Hives Verified 08/27/23 15:36 all over Review of Systems ROS Statement: Those systems with pertinent positive or pertinent negative responses have been documented in the HPI. ROS Other: All systems not noted in ROS Statement are negative. Past Medical History Additional Past Medical History / Comment(s): kidney stones History of Any Multi-Drug Resistant Organisms: None Reported Past Surgical History: No Surgical Hx Reported Additional Past Surgical History / Comment(s): laser tx for kidney stones approx 2-3 years ago. Past Anesthesia/Blood Transfusion Reactions: No Reported Reaction Past Psychological History: No Psychological Hx Reported Smoking Status: Current every day smoker Past Alcohol Use History: Occasional Past Drug Use History: Marijuana General Exam Limitations: no limitations General appearance: alert, in no apparent distress Head exam: Present: atraumatic, normocephalic, normal inspection Eye exam: Present: normal appearance, PERRL, EOMI. Absent: scleral icterus, conjunctival injection, periorbital swelling ENT exam: Present: normal exam, mucous membranes moist Neck exam: Present: normal inspection. Absent: tenderness, meningismus, l ymphadenopathy Respiratory exam: Present: normal lung sounds bilaterally. Absent: respiratory distress, wheezes, rales, rhonchi, stridor Cardiovascular Exam: Present: regular rate, normal rhythm, normal heart sounds. Absent: systolic murmur, diastolic murmur, rubs, gallop, clicks GI/Abdominal exam: Present: soft, tenderness (Left lower quadrant), normal bowel sounds. Absent: distended, guarding, rebound, rigid exam: Present: circumcision, other (String visible. Tegaderm still in place. No bleeding. No swelling). Absent: scrotal swelling Extremities exam: Present: normal inspection, full ROM, normal capillary refill. Absent: tenderness, pedal edema, joint swelling, calf tenderness Back exam: Present: normal inspection Neurological exam: Present: alert, oriented X3, CN II-XII intact Psychiatric exam: Present: normal affect, normal mood Skin exam: Present: warm, dry, intact, normal color. Absent: rash Course Vital Signs 08/31/23 09/01/23 22:49 02:53 Temperature 97.9 F 97.5 F L Pulse Rate 72 68 Respiratory 18 18 Rate Blood Pressure 127/79 103/68 O2 Sat by Pulse 98 99 Oximetry Medical Decision Making - Medical Decision Making Was pt. sent in by a medical professional or institution ([facility], [employer], urgent care, hospital, or longterm...) When possible be specific @ -No Did you speak to anyone other than the patient for history (EMS, parent, family, police, friend...)? What history was obtained from this source @ -No Did you review nursing and triage notes (agree or disagree)? Why? @ -I reviewed and agree with nursing and triage notes Were old charts reviewed (outside hosp., previous admission, EMS record, old EKG , old radiological studies, urgent care reports/EKG's, longterm records)? Report findings @ -I reviewed the procedure note from August 28 Differential Diagnosis (chest pain, altered mental status, abdominal pain women, abdominal pain men, vaginal bleeding, weakness, fever, dyspnea, syncope, h eadache, dizziness, GI bleed, back pain, seizure, CVA, palpatations, mental health, musculoskeletal)? @ -Differential Abdominal Pain Men: Appendicitis, cholecystitis, diverticulosis, ischemic bowel, pancreatitis, hepatitis, UTI, gastroenteritis, AAA, incarcerated hernia, bowel obstruction, constipation, inflammatory bowel, hepatitis, peptic ulcer disease, splenic infarction, perforated viscus, testicular torsion, this is not meant to be an all-inclusive list EKG interpreted by me (3pts min.). @ -Not done X-rays interpreted by me (1pt min.). @ -Yes and demonstrates appropriate placement of his stent CT interpreted by me (1pt min.). @ -None done U/S interpreted by me (1pt. min.). @ -None done What testing was considered but not performed or refused? (CT, X-rays, U/S, labs)? Why? @ -None What meds were considered but not given or refused? Why? @ -None Did you discuss the management of the patient with other professionals (professionals i.e. , PA, [employer], lab, RT, psych nurse, social media director, it analyst, teacher, special weapons and tactics officer, casework specialist)? Give summary @ -I spoke with Dr. Mujica to let him know that the patient was in the emergency department Was smoking cessation discussed for >3mins.? @ -No Was critical care preformed (if so, how long)? @ -No Were there social determinants of health that impacted care today? How? (Homelessness, low income, unemployed, alcoholism, drug addiction, transportation, low edu. Level, literacy, decrease access to med. care, long term, rehab)? @ -No Was there de-escalation of care discussed even if they declined (Discuss DNR or withdrawal of care, Hospice)? DNR status @ -No What co-morbidities impacted this encounter? (DM, HTN, Smoking, COPD, CAD, Cancer, CVA, ARF, Chemo, Hep., AIDS, mental health diagnosis, sleep apnea, morbid obesity)? @ -Nephrolithiasis Was patient admitted / discharged? Hospital course, mention meds given and route, prescriptions, significant lab abnormalities, going to OR and other pertinent info. @ -Discharged. Upon arrival patient was placed into room 20. Thorough history and physical exam was performed. IV access was established. Laboratory studies are conducted. Patient is able to urinate and does provide a urine sample. KUB was performed which demonstrates appropriate placement of the stent. Patient is reevaluated and states that he feels like his pain and pressure has relieved itself. I did discuss the case with Dr. Mujica. Patient has follow-up appointment on Sunday to have his stent removed. Instructed to return for any new or worsening symptoms. Patient agreeable to this plan and was discharged in stable condition Undiagnosed new problem with uncertain prognosis? @ -No Drug Therapy requiring intensive monitoring for toxicity (Heparin, Nitro, Insulin, Cardizem)? @ -No Were any procedures done? @ -No Diagnosis/symptom? @ -Acute left lower quadrant abdominal pain. Recent cystoscopy with stent placement, concern for stent dislodgment Acute, or Chronic, or Acute on Chronic? @ -Acute Uncomplicated (without systemic symptoms) or Complicated (systemic symptoms)? @ -Complicated Side effects of treatment? @ -No Exacerbation, Progression, or Severe Exacerbation? @ -No Poses a threat to life or bodily function? How? (Chest pain, [place], NH, pneumonia, PE, COPD, DKA, ARF, appy, cholecystitis, CVA, Diverticulitis, Homicidal, Suicidal, threat to staff... and all critical care pts) @ -No - Lab Data Result diagrams: 08/31/23 23:38 08/31/23 23:38 Lab Results 08/31/23 08/31/23 09/01/23 Range/Units 23:38 23:38 01:53 WBC 4.9 (3.8-10.6) k/uL RBC 5.32 (4.30-5.90) m/uL Hgb 16.7 (13.0-17.5) gm/dL Hct 47.2 (39.0-53.0) % MCV 88.7 (80.0-100.0) fL MCH 31.4 (25.0-35.0) pg MCHC 35.4 (31.0-37.0) g/dL RDW 12.1 (11.5-15.5) % Plt Count 249 (150-450) k/uL MPV 8.8 Neutrophils % 47 % Lymphocytes % 37 % Monocytes % 7 % Eosinophils % 4 % Basophils % 1 % Neutrophils # 2.3 (1.3-7.7) k/uL Lymphocytes # 1.8 (1.0-4.8) k/uL Monocytes # 0.4 (0-1.0) k/uL Eosinophils # 0.2 (0-0.7) k/uL Basophils # 0.1 (0-0.2) k/uL Sodium 139 (137-145) mmol/L Potassium 4.0 (3.5-5.1) mmol/L Chloride 103 (98-107) mmol/L Carbon Dioxide 27 (22-30) mmol/L Anion Gap 9 mmol/L BUN 10 (9-20) mg/dL Creatinine 0.98 (0.66-1.25) mg/dL Est GFR (CKD-EPI)AfAm >90 (>60 ml/min/1.73 sqM) Est GFR (CKD-EPI)NonAf >90 (>60 ml/min/1.73 sqM) Glucose 89 (74-99) mg/dL Calcium 9.9 (8.4-10.2) mg/dL Total Bilirubin 1.5 H (0.2-1.3) mg/dL AST 25 (17-59) U/L ALT 12 (4-49) U/L Alkaline Phosphatase 73 (38-126) U/L Total Protein 7.9 (6.3-8.2) g/dL Albumin 4.5 (3.5-5.0) g/dL Urine Color Colorless Urine Appearance Cloudy (Clear) Urine pH 6.5 (5.0-8.0) Ur Specific [place] 1.004 (1.001-1.035) Urine Protein Trace H (Negative) Urine Glucose (UA) Negative (Negative) Urine Ketones Negative (Negative) Urine Blood Large H (Negative) Urine Nitrite Negative (Negative) Urine Bilirubin Negative (Negative) Urine Urobilinogen <2.0 (<2.0) mg/dL Ur Leukocyte Esterase Large H (Negative) Urine RBC 17 H (0-5) /hpf Urine WBC 23 H (0-5) /hpf Ur Squamous Epith Cells <1 (0-4) /hpf Urine Bacteria Rare H (None) /hpf Disposition Clinical Impression: S/P cystoscopy, Left flank pain Disposition: HOME SELF-CARE Condition: Stable Instructions (If sedation given, give patient instructions): Kidney Stones (ED) Additional Instructions: Your stent is in the right spot. Dr. Fletcher is aware that you were in the emergency department. Please follow-up at your scheduled appointment and return for any new or worsening symptoms Is patient prescribed a controlled substance at d/c from ED?: No Referrals: Koby Roberson MD [Primary Care Provider] - 1-2 days Dale Mujica MD [STAFF PHYSICIAN] - 1-2 days Time of Disposition: 02:40
[2023-09-01 03:24] VITALS: BP 103/68; PULSE 68; TEMP 97.5
== END 2023-09-01 02:53 | disposition home or self-care (01) ==
LOC: EC 22:44
DX: R10.9 Unspecified abdominal pain (principal); Z93.50 Unspecified cystostomy status; F17.200 Nicotine dependence, unspecified, uncomplicated; F12.90 Cannabis use, unspecified, uncomplicated; Z88.2 Allergy status to sulfonamides; Z88.1 Allergy status to other antibiotic agents; Z88.8 Allergy status to other drugs, medicaments and biological substances
CPT/HCPCS: 36415; 74018; 80053; 81001; 85025; 99284

== ENCOUNTER → 2023-10-03 | Outpatient (CLI) | payer BC ==
--- NOTE | 2023-10-05 11:55 | US ---
EXAMINATION TYPE: US kidneys/renal and bladder DATE OF EXAM: 10/03/2023 COMPARISON: CT chest 524 CLINICAL INDICATION: Male, 28 years old with history of N13.2 HYDRONEPHROSIS WITH RENAL AND URETERAL CALCU; Patient says symptoms have resolved EXAM MEASUREMENTS: Right Kidney: 11.8 x 5.7 x 5.1 cm Left Kidney: 10.1 x 4.5 x 4.5 cm Right Kidney: Scattered echogenic foci measuring up to 1.1 cm. No hydronephrosis. Left Kidney: No hydronephrosis. Bladder: WNL Bilateral Jets seen: Yes IMPRESSION: 1. Echogenic foci in the right kidney measuring up to 1.1 cm suggesting nonobstructive calculi. 2. No hydronephrosis on either side.
== END | disposition home or self-care (01) ==
LOC: RADUSWWP 15:31
PROVIDERS: ATTEND Urology
DX: N13.2 Hydronephrosis with renal and ureteral calculous obstruction (principal)
CPT/HCPCS: 76770

== ENCOUNTER → 2024-12-08 | Outpatient (CLI) | payer BC ==
--- NOTE | 2024-12-08 10:07 | XR ---
EXAMINATION TYPE: XR KUB DATE OF EXAM: 12/08/2024 9:53 AM CLINICAL INDICATION: Male, 29 years old with history of N20.0 CALCULUS OF KIDNEY, pain TECHNIQUE: 1 view of the abdomen. COMPARISON: Abdominal x-ray September 01, 2023. FINDINGS: Probable 2-3 small right renal calculi projecting near L2 level are redemonstrated. Mild to moderate diffuse colonic fecal prominence makes evaluation suboptimal. Lung bases are clear. Osseous structures are intact. IMPRESSION: As above. [facility], , 12/08/2024 10:04 AM
== END | disposition home or self-care (01) ==
LOC: RADXRMAIN 09:40
PROVIDERS: ATTEND Urology
DX: N20.0 Calculus of kidney (principal)
CPT/HCPCS: 74018